=== PATIENT | male | born 1965 | race Caucasian/White ===

== ENCOUNTER 2025-02-20 14:05 | Emergency (ER) | payer BC, SELFPAY ==
[2025-02-20 14:05] VITALS: BP 144/78; PULSE 88; RESP 18; TEMP 36.6; O2SAT 95
--- NOTE | 2025-02-20 14:11 | ED.WOUNDLAC ---
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 No other injuries. Last tetanus shot 2016. Related Data Allergies Allergy/AdvReac Type Severity Reaction Status Date / Time hydromorphone (From Dilaudid) Allergy Unknown Unknown Verified 02/20/25 14:32 Review of Systems Review of Systems: All systems reviewed & are unremarkable except as noted in HPI and below Exam Narrative: General appearance: Well-developed, well-nourished Skin: Normal color , right lower leg showed 3 cm flap laceration, subcutaneous distally and medially Head: Normocephalic, nontraumatic Neck: Supple, nontender Chest and respiratory: Airway patent, no respiratory distress, no accessory muscle use Heart: Regular rate/rhythm Abdomen: Soft, nontender, no organomegaly, quiet bowel sounds Vascular: Normal peripheral pulses, normal capillary refill. Musculoskeletal: Normal range of motion, nontender back Neurologic: Alert and oriented ?3, [employer] TECH[employer]ICIAN is normal as tested, no gross motor deficit Procedures Laceration Laceration 1: Date: 02/20/25 Time: 14:34 Site: lower extremity Side (If applicable): right ( right lower leg medially) Size (cm): 3 Description: flap and clean Depth: simple, single layer Local Anesthetic: lidocaine 1% and with epi Amount of anesthesia used (mL): 4 Pre-repair: wound explored and irrigated ====== Skin Level ====== Skin layer closed with: nylon Size (cm): 4-0 Number of sutures: 4 Technique: simple, interrupted ====== Subcutaneous Layer ====== ====== Muscle Layer ====== ====== Tendon Layer ====== Critical Care Time Critical Care Time Critical Care Time: No Discharge Plan Discharge Clinical Impression: Laceration of leg Patient Disposition: Home Condition: Improved Instructions: Antibiotic Form Additional Instructions: Return if symptoms are worsening , call your family physician for appointment, take Tylenol as as needed for aches and pain, continue home medications. Keep leg elevated Topical Neosporin twice a day for 3 days Remove sutures in 8 days Patient Language: Cuban Prescriptions: New cephalexin 500 mg capsule 500 mg PO Q6H Qty: 28 0RF Follow-up/Referrals: UNKNOWN,DOCTOR [Primary Care Provider]
[2025-02-20] MEDS: TETANUS,DIPHTHERIA,AC PERTUSSIS ADULT 0.5 ML (ADACEL) IM (14:37)
[2025-02-20] MEDS: NEOMYCIN/POLYMYXIN/BACITRACIN OINTMENT PACKET 1 PACKET TOPICAL (14:39)
[2025-02-20 14:46] VITALS: BP 144/78; PULSE 88; RESP 81; TEMP 36.6; O2SAT 95
--- NOTE | 2025-02-20 14:56 | PC.NURSE ---
patient is okay to discharge, no reaction to vaccine post 15 minutes.
--- OUTSIDE RECORDS SUMMARY | 2025-02-20 14:58 | XMS_ITS | Patient Health Record ---
Author Organization [facility] Address [address] [place] [address] Care Team Providers Care Solar Sales Representative Name Role Phone Jose Juan Rocha Primary Care Provider Unavailabl e Sanya Sutton Unavailable [phone] Maurice Hector Unavailable [phone] Sanya Hurley Unavailable [phone] Tony Escobar Unavailable [phone] Columba Sykes Unavailable [phone] Allergies Allergen (clinical drug ingredient) Drug/Non Drug Allergy documented on EMR Reaction Allergy Type Onset Date Status hydromorphone Dilaudid nausea and vomiting Drug Allergy Active Results Component Value Reference Range Notes MRI Lower extremity any join t WO contrast (04459) Reviewed date:11/26/2024 10:27:07 AM Interpretation: Performing Lab: Notes/Report: XR Knee right complete 4 vie ws Reviewed date:05/12/2024 09:47:38 AM Interpretation: Performing Lab: Notes/Report: XR Knee right complete 4 vie ws Reviewed date:11/07/2024 10:38:23 AM Interpretation: Performing Lab: Notes/Report: Reason For Referral Reason MRI w/o contrast rig ht knee [facility] [address] [place]-assess for meniscus tear Diagnosis 1 Peripheral tear of m edial meniscus of right knee as current injury, initial encounter (S83.221A) Diagnosis 2 Primary osteoarthrit is of right knee (M17.11) Diagnosis 3 Right knee pain, uns pecified chronicity (M25.561) Referral Organization [facility] Referring Provider First Name Tony Referring Provider Last Name Luz Referring Provider Speciality Orthopedic Surgery Referred Organization [facility] Referred Address [address],[place],[address],[place] Procedure 1 MRI JNT OF LWR EXTRE W/O DYE (11405) General Notes Susie Mcbride 2024 08:59:04 PM >Initiated case on [employer] web portal for CPT 74389 case has been Approved, Auth no [id number], valid date 11/10/2024 - 12/09/2024., Susie Mcbride 11/10/2024 09:09:16 PM >For secondary insurance ([id number]) - Checked on [employer] web portal found that no auth required for diagnostic imaging. [facility] found that No Authorization Required for CPT 62372. Transaction Id- [id number]. NITA letter has been attached. Even called [employer] @[phone] spoke with Chilango Cohn rep stated no auth required for CPT 37809. call ref [id number].Lexi Angela 11/10/2024 02:10:47 PM >We had like 12 STAT MRI's today . We are about a week out for MRI. Pt. Pt is scheduled 11/19/24, Pt needs a new work order until he sees Dr. Hector on 11/27/24. PHad to R/s since MRI won't be completed by 11/17/24, Vashti Abreu 11/11/2024 04:13:10 PM >Pt does not need a new work note as it has no dates on it for the MRI or for his follow up with Tawny. That was done intentionally because nothing was confirmed at the time.Lexi Angela 11/12/2024 06:55:25 AM >Please call pt to discuss. Pt requested this Referral Priority Stat Reason Auth for right knee Gelsyn-3 Diagnosis 1 Primary osteoarthrit is of right knee (M17.11) Referral Organization [facility] Referring Provider First Name Maurice Referring Provider Last Name Tawny Referring Provider Speciality Orthopedic Surgery Referred Organization [facility] Referred Address [address],[place],[address],[place] Procedure 1 Gelsyn - 3 (GLSN3) General Notes Luly Rivera 08/2024 10:58:30 AM >Per Izzy at [facility] pharmacy dept, will be sending over the tom code to cover my meds., Som Riverada 12/02/2024 11:09:18 AM >Pending auth thru cover my meds, case#[id number]., Miguel [facility] 12/11/2024 03:04:58 PM >Per Izzy at [facility]. Synvisc-3 must be auth under the patient plan., Miguel Luly 12/11/2024 03:07:12 PM >Call [facility] [phone]., Miguel Luly 12/11/2024 03:52:34 PM >Per Jakub at [facility] eligibility, insurance is an active PPO, plan is thru [place], effective 07/02/2024, ded $1500-met, oop $4000-met $1973.66, no copay, coins 100%, no auth required for J7325 and 16295 but Pre-D is required for J7325, phone [phone], call ref#[id number]., Miguel [facility] 12/12/2024 01:44:05 PM >Per Katya E at [facility] pre-d dept, no auth or Pre-D is required for J7325 and 61654, case#[id number]., Miguel [facility] 12/12/2024 02:07:33 PM >Verbal Synvisc-3 script given to Eusebio pharmacist at [facility] now in process and takes 3-5 business days to complete., Miguel [facility] 12/19/2024 10:41:51 AM >Synvsic-3 pending [facility], case ref#[id number], swp with Henry Eddy Samantha 12/19/2024 12:16:24 PM >Leidy from [facility] called stating the the joint injection needs to be submitted under medical not under pharmacy. please call Crystal at [facility] at [phone]. please call patient at [phone]., Miguel Luly 12/25/2024 12:15:33 PM >Pending cover my meds, case#[id number]., Luly Rivera 12/29/2024 02:33:06 PM >Can patient switch to another injection like Euflexxa, Gelsyn-3. I no longer have access to the [employer] Portal., Ara Moran 12/29/2024 03:18:27 PM >switch to Gelsyn 3, thanks!, Luly Rivera 12/29/2024 03:44:56 PM >Pending BV360 for benefits verification and auth., Isai Leonard 01/06/2025 03:33:44 PM >Please call pt-he has information for you [phone], Merced Avila 01/07/2025 09:07:41 AM >pt calling; states ins co told him to submit to medical not pharm for gel injections, Luly Rivera 01/09/2025 02:19:56 PM >Gelsyn-3 injection 100.80 per injection due in full at POS, per Radha Silvestre Referral Priority Urgent Medications Medication SIG (Take, Route, Frequency, Duration) Notes Start Date End Date Status Fluticasone Propionate 50 MCG/ACT 1 spray in each nostril Nasally Twice a day Active Celecoxib 100 MG 1 capsule with food Orally twice a day; Duration: 30 days 12/01/2024 03/01/2025 Active Lisinopril 40 MG 1 tablet Orally Once a day Active hydroCHLOROthiazide 12.5 MG 1 tablet in the morning Orally Once a day Active Cetirizine HCl 10 MG 1 tablet Orally Onc e a day Active Vitamin D Active Voltaren Active Omeprazole 20 MG 1 capsule 1/2 to 1 hour before morning meal Orally Once a day Active Nebivolol HCl 10 MG 1 tablet Orally Once a day Active Coenzyme Q10 10 MG as directed Orally Active Pravastatin Sodium 40 MG 1 tablet Orally Once a day Active Problems Problem Type SNOMED Code ICD Code Onset Dates Problem Status W/U Status Risk Notes Problem Primary osteoarthritis of right knee (M17.11) Active confirmed Vital Signs Height-cm 177.8 cm 02/09/2025 Weight-kg 147.69 kg 11/27/2024 Height 70 in 02/09/2025 Weight 325.6 lbs 11/27/2024 BMI 46.71 kg/m2 11/27/2024 Encounters Encounter Location Date Provider Diagnosis [facility] [address] [place] [address] 05/12/2024 Columba Sykes Right knee pain, unspecified chronicity M25.561 and Primary osteoarthritis of right knee M17.11 [facility] [address] [place] [address] 06/04/2024 Columba Sykes Primary osteoarthrit is of right knee M17.11 [facility] [address] [place] [address] 09/12/2024 Columba Sykes Primary osteoarthrit is of right knee M17.[address] [address] 11/07/2024 Tony Escobar Right knee pain, unspecified chronicity M25.561 and Peripheral tear of medial meniscus of right knee as current injury, initial encounter S83.221A [facility] [address] [place] [address] 11/19/2024 Tony Escobar Peripheral tear of medial meniscus of right knee as current injury, initial encounter S83.221A and Right knee pain, unspecified chronicity M25.561 [facility] [address] [place] [address] 11/27/2024 Maurice Hector Primary osteoarthrit is of right knee M17.11 [facility] [address] [place] [address] 01/26/2025 Sanya Hurley Primary osteoarthrit is of right knee M17.11 [facility] [address] [place] [address] 02/02/2025 Sanya Hurley Primary osteoarthrit is of right knee M17.11 [facility] [address] [place] [address] 02/09/2025 Sanya Hurley Primary osteoarthrit is of right knee M17.11 [facility] [address] [place] [address] 09/22/2024 Tony Escobar [facility] [address] [place] [address] 10/29/2024 Tony Escobar [facility] [address] [place] [address] 11/03/[address] [facility] [address] [place] [address] 12/01/2024 Maurice Adrians [facility] [address] [place] [address] 12/01/2024 Sanya Xavi [facility] [address] [place] [address] 01/30/2025 Maurice Hector [facility] [address] [place] [address] 01/30/2025 Maurice Hector Assessments Encounter Date Diagnosis (ICD Code) Assessment Notes Treatment Notes Treatment Clinical Notes Section Notes 05/12/2024 Primary osteoarthritis of right knee (ICD-10 - M17.11) 05/12/2024 Right knee pain, unspecified chronicity (ICD-10 - M25.561) 06/04/2024 Primary osteoarthritis of right knee (ICD-10 - M17.11) 09/12/2024 Primary osteoarthritis of right knee (ICD-10 - M17.11) 11/07/2024 Right knee pain, unspecified chronicity (ICD-10 - M25.561) 11/07/2024 Peripheral tear of medial meniscus of right knee as current injury, initial encounter (ICD-10 - S83.221A) 11/19/2024 Right knee pain, unspecified chronicity (ICD-10 - M25.561) 11/19/2024 Peripheral tear of medial meniscus of right knee as current injury, initial encounter (ICD-10 - S83.221A) 11/27/2024 Primary osteoarthritis of right knee (ICD-10 - M17.11) 01/26/2025 Primary osteoarthritis of right knee (ICD-10 - M17.11) 02/02/2025 Primary osteoarthritis of right knee (ICD-10 - M17.11) 02/09/2025 Primary osteoarthritis of right knee (ICD-10 - M17.11) 05/12/2024 Other We discussed several conservative treatment options for the patient's right knee osteoarthritis including continuing chxi-jns-kqldgkc medication, prescription strength anti-inflammatories, bracing, topical analgesics, injections, activity and lifestyle modification. At this time since patient has failed conservative treatment in the form of kejd-hyn-agqrazm medications, we will send a prescription for Celebrex to the patient's pharmacy in an effort to decrease pain and inflammation. I discussed with patient that if symptoms persist or worsen we could consider a right knee cortisone injection in the future. Patient was encouraged to wear a compression knee sleeve as needed for pain, swelling, and proprioceptive feedback. We will see patient back on an as-needed basis or sooner if symptoms/issues arise. Patient is agreeable to plan and verbalized understanding. All questions were answered. Disclaimer: To increase efficiency your provider prepared this document using voice recognition technology. If a word or phrase is confusing, or does not make sense, this is likely due to a recognition error within the program which was not discovered during the provider's review. If you believe an error has occurred, please notify your provider's office at your earliest convenience, so we can correct any mistakes. 06/04/2024 Other Pre-Procedure Diagnosis: Right knee osteoarthritis Post-Procedure Diagnosis: Same Indications: Osteoarthritis, severe Procedure: The risks, benefits, limitations, and potential complications associated with injection therapy were discussed in great detail. All questions and concerns related to the injection were addressed appropriately. After verbal consent was obtained, the anterolateral portion of the right knee was prepped with an alcohol swab. Using sterile technique and a 21-gauge needle, the knee was injected with a mixture of 4 mL of 40 mg triamcinolone and 1 ml of 0.5% bupivacaine solution. A pressure bandage was applied to the injection site. The patient tolerated the procedure well and experienced no acute complications. Post-injection instructions were reviewed with the patient. We again discussed several conservative treatment options for the patient's right knee osteoarthritis including zsqo-lbn-igjmdmd medication, prescription strength anti-inflammatories, injections, bracing, activity and lifestyle modification. At this time patient like proceed with a right knee cortisone injection. Patient tolerated the injection today well. I did discuss with patient that he may receive repeat injection as often as every 3 months. Since patient did notice some relief while taking the Celebrex, we will send him a twice a day prescription. I did discuss in length today with the patient that if he continues to fail conservative treatment, we may have to discuss operative treatment options. However I did discuss with patient that in order to be a candidate for total knee replacement in the future patient he would need to work towards BMI optimization with a goal BMI of less than 40. Since I saw patient 05/12/2024 he has already reduced his BMI as he is making several lifestyle changes. I encouraged patient to continue with these lifestyle changes I do see his primary care provider as needed to further discuss BMI optimization. Patient verbalized understanding. We will see patient back on an as-needed basis or sooner if symptoms/issues arise. Patient is agreeable to plan and verbalized understanding. All questions were answered. Disclaimer: To increase efficiency your provider prepared this document using voice recognition technology. If a word or phrase is confusing, or does not make sense, this is likely due to a recognition error within the program which was not discovered during the provider's review. If you believe an error has occurred, please notify your provider's office at your earliest convenience, so we can correct any mistakes. 09/12/2024 Other Pre-Procedure Diagnosis: Right knee osteoarthritis Post-Procedure Diagnosis: Same Indications: Osteoarthritis, severe Procedure: The risks, benefits, limitations, and potential complications associated with injection therapy were discussed in great detail. All questions and concerns related to the injection were addressed appropriately. After verbal consent was obtained, the anterolateral portion of the right knee was prepped with an alcohol swab. Using sterile technique and a 21-gauge needle, the knee was injected with a mixture of 4 mL of 40 mg triamcinolone and 1 ml of 0.5% bupivacaine solution. A pressure bandage was applied to the injection site. The patient tolerated the procedure well and experienced no acute complications. Post-injection instructions were reviewed with the patient. Patient is currently taking his Celebrex twice daily and reports this does give him relief and will continue to take it. I discussed with patient he may receive repeat injection as often as every 3 months. Patient was encouraged to continue to work towards BMI optimization with a goal BMI of less than 40. We will see patient back on an as-needed basis or sooner if symptoms/issues arise. Patient is agreeable to plan and verbalized understanding. All questions were answered. Disclaimer: To increase efficiency your provider prepared this document using voice recognition technology. If a word or phrase is confusing, or does not make sense, this is likely due to a recognition error within the program which was not discovered during the provider's review. If you believe an error has occurred, please notify your provider's office at your earliest convenience, so we can correct any mistakes. 11/07/2024 Other - Ordered and reviewed right knee x-rays in our office to further evaluate the joint. - Encouraged continued use of over the counter medications, braces and exercises to manage pain and improve function. - Advised the patient to consider activity and lifestyle modifications to alleviate symptoms. - Scheduled a follow-up appointment next week with Dr. Hector to discuss test results and determine the next steps in treatment. Harshil presents today for evaluation of right knee pain. He states he had an episode of severe right knee discomfort along the inside of the right knee on Sunday of this week to the point where he could not put any weight on the leg at all. He has been using crutches since then but has not tried walking normally since that time. He does state that his symptoms have improved since Sunday but that he still has some discomfort along the inside of the knee. He did not have any falls, trauma, injuries, or noncontact events but states that he has had gradually worsening knee pain since August of this year. He has already tried steroid injections and has not had much long-term relief from this. We did repeat x-rays today which show moderate right knee arthritis. My impression is that he is having exacerbation of progressively worsening arthritis but he feels like something is torn and it is possible he has a degenerative meniscus tear based on physical exam and radiographic findings. I will order an MRI of the right knee. We discussed continued conservative care. He was interested in pursuing gel injections if this is a possibility after MRI is reviewed. I did mention to him that I was leaving [facility] and he would like to get established with another provider very soon so that he does not experience any lapse in treatment. He will schedule an appointment with Dr. Hector next week to discuss his symptoms and MRI results at that time. He is welcome to follow-up with me on an as-needed basis in the future. I did provide him a work note today stating no work until MRI results are reviewed as he is still unable to walk safely on the right lower extremity. He is agreeable to this and did have all questions answered. Disclaimer: To increase efficiency your provider prepared this document using voice recognition technology. If a word or phrase is confusing, or does not make sense, this is likely due to a recognition error within the program which was not discovered during the provider's review. If you believe an error has occurred, please notify your provider's office at your earliest convenience, so we can correct any mistakes. - Discussed the importance of compliance with the prescribed treatment plan. - Provided information about the potential surgical procedure, if applicable. - Informed the patient about possible outcomes and risks associated with the condition and its management. 11/27/2024 Other MRI of the right [place]20[place] [facility] 1. Horizontal tear of the medial meniscus is at least 1 cm in length.2. 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 The lateral meniscus demonstrates and undersurface tear at the body/posterior horn junction for length of approximately 5 mm. I interpreted 4 views of the right knee including standing AP, notch, lateral and merchant views. These were obtained 11/07/2024 and reviewed with the patient. My Impression: 1. No acute fracture, dislocation or other abnormality. 2. Moderate medial compartment OA, right worse than left. 3. Mild patellofemoral OA, bilateral. At this time, diagnosis and treatment options were discussed with the patient, including continued conservative management, bracing, physical therapy, injection therapy, up to surgical intervention failing nonoperative treatment options. We discussed surgical vs nonsurgical treatment and I explained to him the poor prognosis following arthroscopic surgery since his MRI shows significant chondromalacia along with medial and lateral meniscus tears. We elected to proceed with ordering authorization for gelsyn injection to the right knee and I emphasized on the importance of weight management. We will provide a note to continue off work until he completes the viscosupplementation series. He will be fitted on a medial OA reaction brace to assist with ambulation. This note is documented by Rolan Scott, acting as scribe for Dr. Maurice Hector MD 01/26/2025 Other We discussed th e diagnosis and treatment options. I discussed the role of injection therapy for the temporary treatment of arthritis symptoms, as well as risks, benefits, and limitations. All questions from the patient were answered and informed consent was obtained. The patient's right knee was injected with Gelsyn under a sterile technique. Post-injection protocol instructions were reviewed. 02/02/2025 Other We discussed th e diagnosis and treatment options. I discussed the role of injection therapy for the temporary treatment of arthritis symptoms, as well as risks, benefits, and limitations. All questions from the patient were answered and informed consent was obtained. The patient's right knee was aspirated under a sterile technique. Post-aspiration protocol instructions were reviewed. We discussed the diagnosis and treatment options. I discussed the role of injection therapy for the temporary treatment of arthritis symptoms, as well as risks, benefits, and limitations. All questions from the patient were answered and informed consent was obtained. The patient's right knee was injected with Gelsyn under a sterile technique. Post-injection protocol instructions were reviewed. 02/09/2025 Other We discussed th e diagnosis and treatment options. I discussed the role of injection therapy for the temporary treatment of arthritis symptoms, as well as risks, benefits, and limitations. All questions from the patient were answered and informed consent was obtained. The patient's right knee was injected with Gelsyn under a sterile technique. Post-injection protocol instructions were reviewed. Plan Of Treatment Next Appt Details Provider Name:Sanya Lee rts, 03/12/2025 08:00:00 AM, [address] [place], [address], Insurance Providers Payer Name Payer Address Payer Phone Subscriber Number Group Number Insured Name Patient Relationship to Insured Coverage Start Date Coverage End Date [facility] [address] [place] [address] [id number] Harshil Zaman Self - patient is the insured 5 [facility] PPO [address] [place], [place] [phone] [id number] Patricia Zaman Spouse - patient is the spouse of the insured 5 Medications Administered Medication Instructions Date of Administration Dosage Notes BUPivacaine HCl 06/04/2024 4 mL R Knee BUPivacaine HCl 09/12/2024 4 mL R Knee Lidocaine HCl 02/02/2025 5 mL Gelsyn-3 02/02/2025 2 mL Gelsyn-3 01/26/2025 16.8 mg Gelsyn-3 02/09/2025 16.8 mg Kenalog-40 06/04/2024 1 mL R Knee Kenalog-40 09/12/2024 1 mL R Knee Medical (General) History Medical History History ICD Code Gout High Cholesterol High Blood Pressure Cancer Sleep Apnea Kidney Stones Surgical History Surgery Date(Month/Year) Gall Bladder Hernia
--- OUTSIDE RECORDS SUMMARY | 2025-02-20 14:58 | XMS_ITS | Encounter Summary ---
Author Organization [facility] Address [address] [place] [address] Care Team Providers Care Buoy Tender Name Role Phone Jose Juan Elias MD Primary Care Provider Unavaila Laila Adkins MD Unavailable Unava ilable Encounter Details Date Type Department Care Team (Latest Contact Info) Description 10/19/2011 Historical Office Visit [facility] [place] [address] [place] [phone] Jose Juan Elias MD Unspecified essential hypertension; Other malaise and fatigue Social History Tobacco Use Types Packs/Day Years Used Date Smoking Tobacco: Never Assessed Sex and Gender Information Value Date Recorded Sex Assigned at Not on file 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 Gender Identity Male 10/20/2020 3:58 PM CDT Sexual Orientation Straight 10/20/2020 3: 58 PM CDT documented as of this encounter Last Filed Vital Signs Vital Sign Reading Time Taken Comments Blood Pressure 112/72 10/19/2011 9:08 AM CDT Pulse 66 10/19/2011 9:08 AM CDT Temperature 36.6 C (97.8 F) 10/19/2011 9:08 AM CDT Respiratory Rate 16 10/19/2011 9:08 AM CDT Oxygen Saturation - - Inhaled Oxygen Concentration - - Weight 125.3 kg (276 lb 4 oz) 10/19/2011 9:06 AM CDT Height 175.3 cm (5' 9) 10/19/2011 9:06 AM CDT Body Mass Index 40.79 10/19/2011 9:06 AM CDT documented in this encounter Progress Notes * Jose Juan Elias MD - 10/19/2011 9:06 AM CDT Nursing Chief Complaint/Reason For Encounter F/U ON TESTING Intake Note PT CAME IN TODAY TO FOLLOW UP ON BLOOD WORK AND OTHER TESTING HE HAD AT [facility]: Medication list given and reviewed with patient/family and voices understanding. Subjective HPI HERE FOR F/U ON LABS AND TESTING working on diet exercising more stress and pfts ok no further cp n/v d/c Allergies Reviewed: Oct 19 2011 NKA Past Med/Surg History Problems Advice/health instruction (10); First Visit: Aug 05 2007, Last Visit: Sep 29 2011 Elevated blood pressure w/o hypertension (1); First Visit: Aug 05 2007, Last Visit: Aug 05 2007 Hyperlipidemia (6); First Visit: Sep 30 2007, Last Visit: Sep 29 2011 Pain in limb (1); First Visit: Aug 28 2006, Last Visit: Aug 28 2006 Prostatic hypertrophy, benign (1); First Visit: Aug 05 2007, Last Visit: Aug 05 2007 Tenosynovitis, foot and/or ankle (1); First Visit: Aug 28 2006, Last Visit: Aug 28 2006 Med List last modified Oct 19 2011 Reviewed: Oct 19 2011 lisinopril-hydrochlorothiazide 20 mg-25 mg Tab, 1 tablet(s) by mouth daily, 30 tablet(s) taking Uloric 80 mg Tab, one tablet daily, 30 tablet(s) taking Preferred Pharmacy [place], [place] [[address]] Family History last modified Dec 16 2009 Reviewed: Oct 19 2011 Positive Family History for: Coronary artery disease Diabetes mellitus Hypertension Prostate cancer Additional comments: NOTHING NEW TO ADD TO HX Social History last modified Aug 04 2011 Reviewed: Oct 19 2011 Tobacco Never smoked; Comments Tobacco no use; Tobacco reviewed with patient 10/19/2011 Alcohol Use Non-drinker Caffeine Use Uses caffeine; Amount: heavy (equiv to 4-9 8oz coffee/day) Diet/Nutrition Poor diet Drug Misuse No reported history Exercise Sedentary Home Safety Risk Seat belt worn consistently; Smoke detectors in home Personal: Ethnicity: Not ; Race: WHITE; Primary language: ISRAELI; Marital status: Review of systems Constitutional: No fever, No chills, No abnormal weight gain, No abnormal weight loss, No URI symptoms Eyes/ENT/Mouth: No Visual disturbances, No eye itching, No eye pain, No eye discharge, No epistaxis, No throat pain, No hoarseness, No ear pain, No tinnitus, No hearing loss Cardiorespiratory: No chest pain, No palpitations, No claudication, No orthopnea, No paroxysmal nocturnal dyspnea, No lower extremity edema, No pleuritic chest pain, No dyspnea, No cough, No wheezing, No Purulent sputum GI/: No nausea, No vomiting, No abdominal pain, No diarrhea, No constipation, No blood in stool, No dysuria, No Urinary urgency, No Increased frequency of urination, No nocturia, No Enuresis Musculoskeletal/Integumentary: No neck pain, No back pain, No Arthralgia, No Myalgia, No rash, No pruritus, No change noted in any moles, No Cyanosis of skin, No Skin lesions Neuropsychiatric: No headaches, No lightheadedness, No vertigo, No syncope, No numbness, No muscle weakness, Not feeling anxious, Not feeling depressed, No difficulty sleeping, Not at risk for violence, No History of psychiatric illness Endocrine/Lymphatic/Allergy: No fatigue, No increased thirst, No polyuria, No lymph node swelling, No lymph node tenderness, Does not bruise easily, No Bleeding, No Hayfever, No urticaria, No Anaphylaxis Objective Vital Signs Temp: 97.8??F (Oral) [36.6??C] HR: 66 bpm RR: 16 Blood Pressure: 112/72 mmHg (L arm sitting Adult-std cuff) Date/Time: Oct 19 2011 09:08 Height: 69 in [175.26 cm] Weight:276 lb 4 oz lbs [125.305 kg ] BMI: 40.8 BSA: 2.37 Date/Time: Oct 19 2011 09:06 Physical Exam Constitutional: alert, appropriate, no distress, non-toxic Neck: supple, no mass, no thyromegaly, trachea midline, no JVD, no bruit, full ROM Eyes/ENT: lids/conj clr, PERRL, EOMIB, discs/fundi symm, TM's/canals clr, hearing OK, MM moist/clr Cardio and Respiratory: RRR, no m/r/g/, PMI nml, pulses symm, no edema, chest symm, clear to auscultation, no R/R/W GI/: soft, NT/ND, positive BS X 4, no mass Musculoskeletal/Skin/Lymphatics: back symm/NT, extremities symm, FROM, well hydrated, nml perfusion, no lesions, cervical, supraclavicular, axillary, inguinal nodes sym/nml Neurologic and Psychiatric: CN II-XII intact, DTR 2/4 symm, MS 5/5 symm, sensory exam symm, gait/coordination intact, memory intact, A&O X 3, mood/affect wnl, judgement/insight appropriate Assessment Assessments Advice/health instruction (ICD-9 billing code: V65.40) Gout (ICD-9 billing code: 274.9) Hyperlipidemia, mixed (ICD-9 billing code: 272.2) Hypertension, essential (ICD-9 billing code: 401.9) Malaise and fatigue (not chronic fatigue syndrome) (ICD-9 billing code: 780.79) Billing Detail Medication Management: New/current prescription meds Review and/or order of lab tests; Review and/or order of test in the medicine section of CPT Plan Lab Orders Free and Total Testosterone (Ordered - Malaise and fatigue (not chronic fatigue syndrome)) Lyme AB, Total (Ordered - Malaise and fatigue (not chronic fatigue syndrome)) Prescription Orders Rx Cart - Oct 19 2011 09:35 pravastatin 40 mg Tab, 1 tablet(s) by mouth at bedtime, 30 tablet(s), 3 refills (Hyperlipidemia, mixed) Cart Status: Submitted Route: Electronic Rx Cart [id number] phone: [phone]: Message for Pharmacy: - Procedure Orders zPt Ed - Calcium Intake (Performed - Advice/health instruction) zPt Ed - Immunizations (Performed - Advice/health instruction): Other orders LABS BETTER BUT HIGH RISK FOR CAD ADD PRAVACHOL WORK ON EXERCISE CHECK TESTOSTERONE AND LYMES LIVER LIPIDS IN 3 MO Contributors to this Visit Note Documenting Clinician: Purvi LOPEZ - Staff Type: NONE Time: Oct 19 2011 09:06 Action: Eamon LOPEZ - Staff Type: NONE Time: Oct 19 2011 09:10 Action: Smita CARR - Staff Type: NONE Time: Oct 19 2011 09:42 Action: Smita ELIAS - Staff Type: Physician Time: Oct 19 2011 13:09 Action: Smita ELIAS - Staff Type: Physician Time: Oct 19 2011 13:09 Action: Sign documented in this encounter Plan of Treatment Not on file documented as of this encounter Visit Diagnoses Diagnosis Unspecified essential hypertension Other malaise and fatigue documented in this encounter Care Teams Buoy Tender Relationship Specialty Start Date End Date Jose Juan Elias MD PCP - General Family Medicine 04/06/14 05/05/24 Laila Alfonso MD Consulting Physician Dermatology 12/05/18 documented as of this encounter
--- OUTSIDE RECORDS SUMMARY | 2025-02-20 14:58 | XMS_ITS | Encounter Summary ---
Author Organization [employer] [facility] Address [address] [place] [address] Care Team Providers Care Technical Support Coordinator Name Role Phone Jose Juan Elias MD Primary Care Provider Unavaila Laila Adkins MD Unavailable Unava ilable Encounter Details Date Type Department Care Team (Latest Contact Info) Description 02/19/2012 Historical Office Visit [facility] [place] [address] [place] [phone] Jose Juan Elias MD Unspecified essential hypertension Social History Tobacco Use Types Packs/Day Years Used Date Smoking Tobacco: Never Assessed Sex and Gender Information Value Date Recorded Sex Assigned at Not on file 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 Gender Identity Male 10/20/2020 3:58 PM CDT Sexual Orientation Straight 10/20/2020 3: 58 PM CDT documented as of this encounter Last Filed Vital Signs Vital Sign Reading Time Taken Comments Blood Pressure 110/70 02/19/2012 9:16 AM CDT Pulse 68 02/19/2012 9:16 AM CDT Temperature 36.2 C (97.2 F) 02/19/2012 9:16 AM CDT Respiratory Rate 16 02/19/2012 9:16 AM CDT Oxygen Saturation - - Inhaled Oxygen Concentration - - Weight 123.8 kg (273 lb) 02/19/2012 9:16 AM CDT Height 176.5 cm (5' 9.5) 02/19/2012 9:16 AM CDT Body Mass Index 39.74 02/19/2012 9:16 AM CDT documented in this encounter Progress Notes * Jose Juan Elias MD - 02/19/2012 9:16 AM CDT Nursing Chief Complaint/Reason For Encounter MED REVIEW / LAB WORK Intake Note PT. HERE TODAY TO REVIEW MEDS AND STATES HE IS DUE FOR LAB WORK. HE WOULD LIKE A SCRIPT FOR CPAP SUPPLIES.: Provided tobacco use cessation counseling, Medication list given and reviewed with patient/family and voices understanding. Subjective HPI HERE FOR CHECK UP AND REFILLS NO CP SOBN/V D/C NOT SLEEPING WELL WAKING UP IN MIDDLE NIGHT AND CANTGO BACK TO SLEEP HASNT TRIED ANYTHING OTC YET STILL HAS BEEN TAKING HCTZ AND ULORIC, FEET HURT ALL TIME Allergies Reviewed: Feb 19 2012 NKA Past Med/Surg History Problems Advice/health instruction (12); First Visit: Aug 05 2007, Last Visit: Oct 24 2011 Elevated blood pressure w/o hypertension (1); First Visit: Aug 05 2007, Last Visit: Aug 05 2007 Hernias - Hx of hernia repair Hyperlipidemia (6); First Visit: Sep 30 2007, Last Visit: Sep 29 2011 Pain in limb (1); First Visit: Aug 28 2006, Last Visit: Aug 28 2006 Prostatic hypertrophy, benign (1); First Visit: Aug 05 2007, Last Visit: Aug 05 2007 Tenosynovitis, foot and/or ankle (1); First Visit: Aug 28 2006, Last Visit: Aug 28 2006 Med List last modified Feb 19 2012 Reviewed: Feb 19 2012 pravastatin 40 mg Tab, 1 tablet(s) by mouth at bedtime, 30 tablet(s) taking AndroGel 20.25 mg/1.25 gram (1.62 %) Transdermal Gel Pump, *COMPOUND*, 1 month(s) taking discontinued discontinued (Dosage change) discontinued Uloric 80 mg Tab, one tablet daily, 30 tablet(s) taking Preferred Pharmacy [place], [place] [[place], [address] [place] [address]] Family History last modified Dec 16 2009 Reviewed: Feb 19 2012 Positive Family History for: Coronary artery disease Diabetes mellitus Hypertension Prostate cancer Additional comments: NOTHING NEW TO ADD TO HX Social History last modified Aug 04 2011 Reviewed: Feb 19 2012 Tobacco Never smoked; Comments Tobacco no use; Tobacco reviewed with patient 02/19/2012 Alcohol Use Non-drinker Caffeine Use Uses caffeine; Amount: heavy (equiv to 4-9 8oz coffee/day) Diet/Nutrition Poor diet Drug Misuse No reported history Exercise Sedentary Home Safety Risk Seat belt worn consistently; Smoke detectors in home Personal: Ethnicity: Not ; Race: WHITE; Primary language: KYRGYZ; Marital status: Review of systems Constitutional: No [...] Musculoskeletal/Integumentary: No neck pain, No back pain, Arthralgia, Myalgia, No rash, No pruritus, No change [...] urticaria, No Anaphylaxis Objective Vital Signs Temp: *97.2 ??F (Oral) [36.3??C] HR: 68 bpm RR: 16 Blood Pressure: 110/70 mmHg (L arm sitting Adult-std cuff) Height: 69.5 in [176.53 cm] Weight:273 lbs [123.831 kg ] BMI: 39.7 BSA: 2.37 Date/Time: Feb 19 2012 09:16 Physical Exam Constitutional: alert, appropriate, no distress, [...] lesions, cervical, supraclavicular, axillary, inguinal nodes sym/nml CHRONIC GOUT Neurologic and Psychiatric: CN II-XII intact, DTR 2/4 symm, MS 5/5 symm, sensory exam symm, gait/coordination intact, memory intact, A&O X 3, mood/affect wnl, judgement/insight appropriate Assessment Assessments Advice/health instruction (ICD-9 billing code: V65.40) Gout (ICD-9 billing code: 274.9) Hypertension, essential (ICD-9 billing code: 401.9) Pain, foot (ICD-9 billing code: 729.5) Billing Detail Medication Management: New/current prescription meds Review and/or order of lab tests; Review and/or order of test in the medicine section of CPT Plan Lab Orders CBC with Differential (Manifested - Hypertension, essential) Comprehensive Metabolic Panel (CMP) (Manifested - Gout) Free and Total Testosterone (Manifested - Gout, Hypertension, essential) Lipid Panel (Manifested - Gout, Hypertension, essential) Uric Acid, Serum (Manifested - Gout) Prescription Orders Rx Cart - Feb 19 2012 09:46 lisinopril 40 mg Tab, 1 tablet(s) by mouth daily, 30 tablet(s), 5 refills Cart Status: Submitted Route: Electronic Rx Cart [id number] phone: [phone]: Message for Pharmacy: - Procedure Orders zPt Ed - Skin Cancer (Performed - Advice/health instruction) zPt Ed - Traffic Safety (Performed - Advice/health instruction): Other orders DC HCTZ BUMP LISINOPRIL TO 40 MG BP CHECK IN 4-6 WKS CALL IF ISSUES LABS TODAY MIGHT BE ABLE TO DROP ULORIC TO 40 IN FUTURE Contributors to this Visit Note Documenting Clinician: Purvi ROMERO - Staff Type: ASST Time: Feb 19 2012 09:16 Action: Eamon ROMERO - Staff Type: ASST Time: Feb 19 2012 09:22 Action: Smita ELIAS - Staff Type: MD Time: Feb 19 2012 09:47 Action: Smita TEJADA - Staff Type: Registered Nurse Time: Feb 19 2012 09:53 Action: Smiat ELIAS - Staff Type: MD Time: Feb 19 2012 13:08 Action: Sign documented in this encounter Plan of Treatment Not on file documented as of this encounter Visit Diagnoses Diagnosis Unspecified essential hypertension documented in this encounter Care Teams Technical Support Coordinator Relationship Specialty Start Date End Date Jose Juan Elias MD PCP - General Family Medicine 04/06/14 05/05/24 Laila Alfonso MD Consulting Physician Dermatology 12/05/18 documented as of this encounter
--- OUTSIDE RECORDS SUMMARY | 2025-02-20 14:58 | XMS_ITS | Encounter Summary ---
Author Organization [employer] [facility] Address [address] [place] [address] Care Team Providers Care Support Associate Name Role Phone Jose Juan Rocha MD Primary Care Provider Unavaila ble Laila Alfonso MD Unavailable Unava ilable Encounter Details Date Type Department Care Team (Latest Contact Info) Description 08/16/2009 Historical Office Visit [facility] [place] [address] [place] [phone] Jose Juan Rocha MD Unspecified essential hypertension; Personal history of urinary calculi Social History Tobacco Use Types Packs/Day Years Used Date Smoking Tobacco: Never Assessed Sex and Gender Information Value Date Recorded Sex Assigned at Not on file 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 Gender Identity Male 10/20/2020 3:58 PM CDT Sexual Orientation Straight 10/20/2020 3: 58 PM CDT documented as of this encounter Last Filed Vital Signs Vital Sign Reading Time Taken Comments Blood Pressure 110/64 08/16/2009 4:04 PM SAND AND GRAVEL PLANT OPERATOR Pulse 80 08/16/2009 4:04 PM SAND AND GRAVEL PLANT OPERATOR Temperature - - Respiratory Rate 20 08/16/2009 4:04 PM SAND AND GRAVEL PLANT OPERATOR Oxygen Saturation - - Inhaled Oxygen Concentration - - Weight 117 kg (258 lb) 08/16/2009 4:04 PM SAND AND GRAVEL PLANT OPERATOR Height - - Body Mass Index 38.1 02/19/2009 10:23 AM CDT documented in this encounter Plan of Treatment Not on file documented as of this encounter Visit Diagnoses Diagnosis Unspecified essential hypertension Personal history of urinary calculi documented in this encounter Care Teams Support Associate Relationship Specialty Start Date End Date Jose Juan Rocha MD PCP - General Family Medicine 04/06/14 05/05/24 Laila Alfonso MD Consulting Physician Dermatology 12/05/18 documented as of this encounter
--- OUTSIDE RECORDS SUMMARY | 2025-02-20 14:58 | XMS_ITS | Encounter Summary ---
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 Gender Identity Male 10/20/2020 3:58 PM CDT Sexual Orientation Straight 10/20/2020 3: 58 PM CDT documented as of this encounter Last Filed Vital Signs Vital Sign Reading Time Taken Comments Blood Pressure 170/100 02/19/2009 10:23 AM CDT Pulse 78 02/19/2009 10:23 AM CDT Temperature - - Respiratory Rate - - Oxygen Saturation - - Inhaled Oxygen Concentration - - Weight 117 kg (258 lb) 02/19/2009 10:23 AM CDT Height 175.3 cm (5' 9) 02/19/2009 10:23 AM CDT Body Mass Index 38.1 02/19/2009 10:23 AM CDT documented in this encounter Plan of Treatment Not on file documented as of this encounter Visit Diagnoses Not on filedocumented in this encounter Care Teams Crown Ironer Relationship Specialty Start Date End Date Jose Juan Rocha MD PCP - General Family Medicine 04/06/14 05/05/24 Laila Alfonso MD Consulting Physician Dermatology 12/05/18 documented as of this encounter
--- OUTSIDE RECORDS SUMMARY | 2025-02-20 14:58 | XMS_ITS | Patient Health Record ---
Author Organization [facility] Address [address] [place], [place] [address] Care Team Providers Care Account Representative Name Role Phone Jose Juan Rocha MD Primary Care Provider KEITH Medley Unavailable [phone] Allergies Allergen (clinical drug ingredient) Drug/Non Drug Allergy documented on EMR Reaction Allergy Type Onset Date Status hydromorphone hydromorphone stomach upset Drug Allergy Active Reason For Referral No Information Medications Medication SIG (Take, Route, Frequency, Duration) Notes Start Date End Date Status predniSONE 20 mg 2 tabs orally once a day for 5 days 04/29/2023 Active cholestyramine 4 g/9 g as directed orally 4 times a day for 30 day(s) 03/08/2022 Not-Taking Metoprolol Succinate ER 50 mg 1 tab(s) orally 2 times a day Not-Taking amoxicillin 875 mg 1 tab(s) orally every 12 hours for 10 day(s) 04/29/2023 Active ZyrTEC 10 mg 1 tab(s) orally once a day Active ondansetron 4 mg 1 tab(s) orally every 8 hours as needed for nausea prn 11/05/2021 Not-Taking Claritin 10 mg 1 tab(s) orally once a day Not-Taking Vitamin D3 5000 mg a day Active fluticasone nasal 50 mcg/inh 1 spray(s) in each nostril once a day for 30 day(s) 11/10/2022 Active nebivolol 10 mg 1 tab(s) orally once a day Active amoxicillin 875 mg 1 tab(s) orally every 12 hours for 10 day(s) 11/10/2022 Not-Taking lisinopril 40 mg 1 tab(s) orally once a day Active Uloric 80 mg 1 tab(s) orally once a day for 30 day(s) Active pravastatin 40 mg 1 tab(s) orally once a day for 30 day(s) Active omeprazole 20 mg 1 tab(s) orally 2 times a day Active Co Q-10 100 mg 1 cap(s) orally once a day Active Tylenol PM 1000 mg-50 mg/30 mL 30 mL orally once a day (at bedtime) Not-Taking hydroCHLOROthiazide 12.5 mg 1 cap(s) orally once a day Active Immunizations Vaccine Route Administration Date Status Comme nts Boostrix (Tdap) Unknown 10/31/2016 Administered Social History Tobacco Use: Social History Observation Description Date Details (start date - stop date) Never Smoker NA - NA Tobacco Use: Question Answer Notes Are you a: nonsmoker Alcohol Screening: Question Answer Notes Did you have a drink contain ing alcohol in the past year? Yes How often did you have a dri nk containing alcohol in the past year? Monthly or less (1 point) How many drinks did you have on a typical day when you were drinking in the past year? 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) Active confirmed Problem 82586004 Primary hypertension (I10) Active confirmed Problem 257867278 Chronic GERD (K21.9) Active confirmed Problem 744420383 Seasonal allergi c rhinitis, unspecified trigger (J30.2) Active confirmed Plan Of Treatment No Information Medications Administered Medication Instructions Date of Administration Dosage Notes ondansetron 11/05/2021 4 mg Lot# [id number] Medical (General) History Medical History History ICD Code Covid 19 vaccine:Pfizer 09/15/20, , 05/31/21 TDap: 10/31/16, 08/02/20 hypertension hyperlipidemia Surgical History Surgery Date(Month/Year) Double Hernia repair when a child Laparoscopic Cholectomy by Dr Nora Henao at . 01/23/2022 EGD w/biopsy and screening c olonoscopy w/polypectomy [address] Lizzeth Piper at 02/20/2022 Hospitalization History Reason Date(Month/Year) Kidney stones
--- OUTSIDE RECORDS SUMMARY | 2025-02-20 14:58 | XMS_ITS | Encounter Summary ---
Author Organization [employer] Address [address] [place] [address] Care Team Providers Care Mill Attendant Name Role Phone Jose Juan Rocha MD Primary Care Provider Unavaila Laila Adkins MD Unavailable Unava ilable Encounter Details Date Type Department Care Team (Latest Contact Info) Description 06/16/2010 Historical Office Visit [facility] Medicine [place] [address] [place] [phone] Jose Juan Rocha MD Unspecified essential hypertension; Obstructive sleep apnea (adult) (pediatric) Social History Tobacco Use Types Packs/Day Years Used Date Smoking Tobacco: Never Assessed Sex and Gender Information Value Date Recorded Sex Assigned at Not on file 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 Gender Identity Male 10/20/2020 3:58 PM CDT Sexual Orientation Straight 10/20/2020 3: 58 PM CDT documented as of this encounter Last Filed Vital Signs Vital Sign Reading Time Taken Comments Blood Pressure 122/90 06/16/2010 11:30 AM ELECTROCARDIOGRAM TECHNICIAN Pulse 70 06/16/2010 11:30 AM ELECTROCARDIOGRAM TECHNICIAN Temperature - - Respiratory Rate 18 06/16/2010 11:30 AM ELECTROCARDIOGRAM TECHNICIAN Oxygen Saturation - - Inhaled Oxygen Concentration - - Weight 122.6 kg (270 lb 6 oz) 06/16/2010 11:30 A M ELECTROCARDIOGRAM TECHNICIAN Height 175.3 cm (5' 9) 06/16/2010 11:30 AM ELECTROCARDIOGRAM TECHNICIAN Body Mass Index 39.93 06/16/2010 11:30 AM ELECTROCARDIOGRAM TECHNICIAN documented in this encounter Plan of Treatment Not on file documented as of this encounter Visit Diagnoses Diagnosis Unspecified essential hypertension Obstructive sleep apnea (adult) (pediatric) documented in this encounter Care Teams Mill Attendant Relationship Specialty Start Date End Date Jose Juan Rocha MD PCP - General Family Medicine 04/06/14 05/05/24 Laila Alfonso MD Consulting Physician Dermatology 12/05/18 documented as of this encounter
--- OUTSIDE RECORDS SUMMARY | 2025-02-20 14:58 | XMS_ITS | Encounter Summary ---
Author Organization [facility] Address [address] [place] [address] Care Team Providers Care Roller Structural Mill Name Role Phone Jose Juan Rocha MD Primary Care Provider Unavaila Laila Adkins MD Unavailable Unava ilable Encounter Details Date Type Department Care Team (Latest Contact Info) Description 12/13/2011 Historical Office Visit [facility] [address] [place] [id number] Jose Juan Rocha MD Gout, unspecified Social History Tobacco Use Types Packs/Day Years Used Date Smoking Tobacco: Never Assessed Sex and Gender Information Value Date Recorded Sex Assigned at Not on file 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 Gender Identity Male 10/20/2020 3:58 PM CDT Sexual Orientation Straight 10/20/2020 3: 58 PM CDT documented as of this encounter Last Filed Vital Signs Vital Sign Reading Time Taken Comments Blood Pressure 118/68 12/13/2011 4:02 PM CDT Pulse 72 12/13/2011 4:02 PM CDT Temperature 36.6 C (97.8 F) 12/13/2011 4:02 PM CDT Respiratory Rate 12 12/13/2011 4:02 PM CDT Oxygen Saturation - - Inhaled Oxygen Concentration - - Weight 125.2 kg (276 lb 2 oz) 12/13/2011 4:02 PM CDT Height 175.3 cm (5' 9) 12/13/2011 4:02 PM CDT Body Mass Index 40.78 12/13/2011 4:02 PM CDT documented in this encounter Progress Notes * Jose Juan Rocha MD - 12/13/2011 4:02 PM CDT Nursing Chief Complaint/Reason For Encounter GOUT FLARE UP IN BOTH FEET. Subjective HPI HERE WITH GOUT ISSUES IN BOTH FEET DOING OK UNTIL RECENTLY TAKES HIGH DOSE ULORIC AND NEVER MISSES LAST URIC ACID LOW AT 4.7 Allergies Reviewed: Dec 13 2011 NKA Past Med/Surg History Problems Advice/health [...] Aug 28 2006 Med List last modified Dec 13 2011 Reviewed: Dec 13 2011 diclofenac sodium 75 mg Tab, Delayed Release, 1 tablet two times daily as needed with food for pain, 60 tablet,delayed release(ec)(s) taking lisinopril-hydrochlorothiazide 20 mg-25 mg Tab, 1 tablet(s) by mouth daily, 30 tablet(s) taking pravastatin 40 mg Tab, 1 tablet(s) by mouth at bedtime, 30 tablet(s) taking AndroGel 20.25 mg/1.25 gram (1.62 %) Transdermal Gel Pump, *COMPOUND*, 1 month(s) taking Uloric 80 mg Tab, one tablet daily, 30 tablet(s) taking discontinued (DIDN'T LIKE SIDE EFFECTS) Preferred Pharmacy [place], [place] [[facility], [address] [place] [address]] Family History last modified Dec 16 2009 Reviewed: Dec 13 2011 Positive Family History for: Coronary artery disease Diabetes mellitus Hypertension Prostate cancer Additional comments: NOTHING NEW TO ADD TO HX Social History last modified Aug 04 2011 Reviewed: Dec 13 2011 Tobacco Never smoked; Comments Tobacco no use; Tobacco reviewed with patient 10/24/2011 Alcohol Use Non-drinker Caffeine Use Uses caffeine; Amount: heavy (equiv to 4-9 8oz coffee/day) Diet/Nutrition Poor diet Drug Misuse No reported history Exercise Sedentary Home Safety Risk Seat belt worn consistently; Smoke detectors in home Personal: Ethnicity: Not ; Race: WHITE; Primary language: SUDANESE; Marital status: Review of systems Constitutional: No [...] No urticaria, No Anaphylaxis Objective Vital Signs Pain Scale: 4/10 (Numeric) Location: RIGHT FOOT Frequency: Constant Duration: THREE DAYS Relieving Factors: NONE Significant to Visit: Yes Date/Time: Dec 13 2011 16:05 Temp: 97.8??F (Oral) [36.6??C] HR: 72 bpm RR: *12 Blood Pressure: 118/68 mmHg (L arm sitting Adult-std cuff) Height: 69 in [175.26 cm] Weight:276 lb 2 oz lbs [125.248 kg ] BMI: 40.8 BSA: 2.369 Pain Scale: 7/10 (Numeric) Location: LEFT FOOT Frequency: Constant Duration: THREE DAYS Relieving Factors: NONE Significant to Visit: Yes Date/Time: Dec 13 2011 16:02 Physical Exam Constitutional: alert, appropriate, no distress, [...] lesions, cervical, supraclavicular, axillary, inguinal nodes sym/nml TENDER SWOLLEN R GREAT TOE AND L MIDFOOT Neurologic and Psychiatric: CN II-XII intact, DTR 2/4 symm, MS 5/5 symm, sensory exam symm, gait/coordination intact, memory intact, A&O X 3, mood/affect wnl, judgement/insight appropriate Assessment Assessments Gout (ICD-9 billing code: 274.9) Billing Detail Medication Management: New/current prescription meds Review and/or order of lab tests Plan Lab Orders Standing Uric Acid, Serum in 1 month Prescription Orders Rx Cart - Dec 13 2011 16:20 prednisone 10 mg Tab, 2 tabs bid x 2 days, 1 tab bid x 2 days, then 1 tab daily for 3 days, 7 day(s), No refills Cart Status: Submitted Route: Electronic Rx Cart Order Notes: [id number] phone: [phone]: [phone] Copied Rx Cart - Dec 13 2011 16:25 Copied by: PANCHO BORRERO Reason: ROSANA failure prednisone 10 mg Tab, 2 tabs bid x 2 days, 1 tab bid x 2 days, then 1 tab daily for 3 days, 7 day(s), No refills Cart Status: Regenerated Route: Fax Rx Cart Order Notes: [id number] phone: [phone]: [phone] Message for Pharmacy: -: Other orders PRED TAPER AND NSAID REFILL GOUT DIET AGAIN, STAYS ON OXALATE DIET TOO CALL IF ISSUES CHECK URIC ACID IN DECEMBER Contributors to this Visit Note Documenting Clinician: Purvi YOUNG - Type: Bush Hog Operator Time: Dec 13 2011 16:02 Action: Eamon YOUNG - Staff Type: Bush Hog Operator Time: Dec 13 2011 16:05 Action: Smita ROCHA - Staff Type: MD Time: Dec 13 2011 16:22 Action: Smita BORRERO - Staff Type: Registered Nurse Time: Dec 13 2011 16:25 Action: Smita ROCHA - Staff Type: MD Time: Dec 14 2011 08:58 Action: Sign documented in this encounter Plan of Treatment Not on file documented as of this encounter Visit Diagnoses Diagnosis Gout, unspecified documented in this encounter Care Teams Roller Structural Mill Relationship Specialty Start Date End Date Jose Juan Rocha MD PCP - General Family Medicine 04/06/14 05/05/24 Laila Alfonso MD Consulting Physician Dermatology 12/05/18 documented as of this encounter
--- OUTSIDE RECORDS SUMMARY | 2025-02-20 14:58 | XMS_ITS | Clinical Summary ---
Author Organization [facility] Address [address] [place] [address] Phone Care Team Providers Care Casting Machine Set Up Operator Name Role Phone Aj MAYBERRY MD, Jose Juan Melendez Primary Care Provider [phone] Allergies Active Allergy Reactions Criticality Noted Date Comments Hydromorphone Hcl Nausea Low 02/26/2014 Medications lisinopril 40 MG PO TABS Take 40 mg by mouth daily. Active pravastatin (PRAVACHOL) 40 MG Tablet Take 40 mg by mouth daily. Active febuxostat (ULORIC) 80 MG Tablet Take 80 mg by mouth daily. Active Diphenhydramine -APAP, sleep, (TYLENOL PM EXTRA STRENGTH PO) Take 2 Tabs by mouth nightly as needed. Active loratadine (CLARITIN) 10 MG Tablet Take 10 mg by mouth daily. Active omeprazole (PRILOSEC) 20 MG CAPSULE DELAYED RELEASE Take 20 mg by mouth 2 times daily. 08/13/2018 Active meclizine (ANTIVERT) 25 MG Tablet Take 25 mg by mouth. 01/05/2020 Active hydroCHLOROthia zide (MICROZIDE) 12.5 MG Capsule Take 1 Capsule by mouth daily. 12/18/2020 Active Nebivolol HCl 10 MG Tablet Take 10 mg by mouth daily. 07/17/2022 Active Coenzyme Q10 100 MG Capsule Take 1 Capsule by mouth daily. Active Cholecalciferol (VITAMIN D-3 PO) Take 5,000 Units by mouth daily. Active Active Problems Problem Noted Date Diagnosed Date Hepatic steatosis 10/19/2022 Arthritis 10/19/2022 PAD (peripheral artery disease) 10/18/2022 GERD (gastroesophageal reflux disease) 3 HTN (hypertension) 04/20/2018 HLD (hyperlipidemia) 04/20/2018 hx of gout 04/20/2018 SERAFIN (acute kidney injury) 04/20/2018 Cholelithiasis 04/20/2018 Kidney stone 02/18/2014 Overview (07/09/2018): 07/09/2018: right ureteral stent placement 07/03/18 Jose Luis URS and stone extraction, stents with strings out Sunday05/08/18 Right ESWL - proximal ureter 10 mm 8-28-14 R ESWL Obstructive sleep apnea 04/08/2009 Overview (10/16/2011): Improved 05/12/2009 - Improved with a CPAP of 8. Pt has good usage of 6-8 hrs a night every night. Does have some awakening and insomnia at 3 to 4 in the morning. Discussed sleep hygiene and techniques with the pt. Pt will call office if he sees no improvement. 08/16/2009 - Pt is doing well on 8 cm of water pressure with CPAP with usage 7 out of 7 nights. Still has some mild insomnia at 3 in the morning and we discussed several techniques of sleep hygiene, decrease caffeine and reprioritizing some daytime issues. 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 Gender Identity Not on file Sexual Orientation Not on file Last Filed Vital Signs Vital Sign Reading Time Taken Comments Blood Pressure 126/68 10/19/2022 10:01 AM CDT Pulse 61 10/19/2022 10:01 AM CDT Temperature 37.1 C (98.7 F) 04/29/2020 12:51 PM CDT Respiratory Rate 16 04/29/2020 12:51 PM CDT Oxygen Saturation 98% 10/19/2022 10:01 AM CDT Inhaled Oxygen Concentration - - Weight 146.5 kg (323 lb) 10/19/2022 10:01 AM CDT Height 177.8 cm (5' 10) 10/19/2022 10:01 AM CDT Body Mass Index 46.35 10/19/2022 10:01 AM CDT Plan of Treatment Health Maintenance Due Date Last Done Comments Hepatitis C Virus (HCV) Screening 1967 Hepatitis B Immunization (1 of 3 - 19+ 3-dose series) 09/30/1986 Cologuard 09/30/2012 Colonoscopy 09/30/2012 Colorectal Cancer Screening 09/30/2012 Immunochemical Fecal Occult Blood 09/30/2012 Pneumococcal Immunization (50+ years) (1 of 1 - PCV) 09/30/2017 SARS-COV-2 Immunization ( season) 2024 06/09/2022, 05/31/2021, 10/13/2020, Additional history exists Influenza Immunization (#1) 2025 05/09/2024, 1 08/10/2021 Respiratory Syncytial Virus (RSV) Immunization (Adult) (1 - 1-dose 75+ series) 09/30/2042 PSA Discussion Completed 12/01/2008 DTaP/Tdap/Td Immunization Discontinued 10/31/2016, 07/2011 TdaP Immunization Completed 10/31/2016, 08/02/2011 Zoster Immunization Completed 05/09/2024, 3 Human Papillomavirus (HPV) Immunization Aged Out No longer eligible based on patient's age to complete this topic Meningococcal Immunization (ACWY) Aged Out No longer eligible based on patient's age to complete this topic Rotavirus Immunization Aged Out No lo nger eligible based on patient's age to complete this topic Medical Devices Implanted Type Area Supervisor Electronic Coils Device Identifier Shelf Expiration Date Model / Serial / Lot Stent Ureteral 5fr 2.1fr 26cm 2 Pigtail Curve 2 Durometer Taper Tip Loprfl Graduated Polaris Ultra - [id number] Implanted:Qty : 2 on 07/03/2018 by Steve Ocampo MD at [facility] IMPLANT [employer] [id number] 0 / / NONE Stent Ureteral 6fr 26cm Pigtail Curve Taper Tip Bladder Jamie Loprfl Lg Inner Lumen Contour Percuflex - [id number] Implanted:Qty : 1 on 07/09/2018 by Troy Reyes MD at [facility] IMPLANT Right: Ureter [employer] 04/29/2021 [id number] / / [id number] Procedures Procedure Name Priority Date/Time Associated Diagnosis Comments PSA DIAGNOSTIC,TOTAL Routine 12/01/2008 2:00 PM CDT from Last 3 Months or Most Recently Relevant to Health Maintenance Results * PSA PROSTATIC SPECIFIC AG, DIAG (12/01/2008 2:00 PM CDT) PSA (PROSTATE SPECIFIC ANTIGEN) 0.9 <4.0 NG/ML [facility] 12/01/2008 2:00 PM CDT 12/01/2008 2:15 PM CDT us Mahendra Cox MD CHEMISTRY ORDERABLES nal Result [facility] [address] [place] [address] from Last 3 Months or Most Recently Relevant to Health Maintenance Insurance [facility] [place] Advance Directives * Full Code (Latest Code Status on File) Date Activated Date Inactivated Comments 07/08/2018 3:26 PM 07/10/2018 2:04 PM CPR-Full Treat ment: FULL ARREST: Attempt Resuscitation/CPR wit intubation and mechanical ventilation. PRE-ARREST: Use entire range of life support measures to stabilize the patient. * Full Code Date Activated Date Inactivated Comments 04/20/2018 12:02 AM 04/20/2018 5:43 PM CPR-Full Treatment: FULL ARREST: Attempt Resuscitation/CPR wit intubation and mechanical ventilation. PRE-ARREST: Use entire range of life support measures to stabilize the patient. Care Teams Casting Machine Set Up Operator Relationship Specialty Start Date End Date Jose Juan Rocha II, MD [address] [place] [address] PCP - General 01/31/10
--- OUTSIDE RECORDS SUMMARY | 2025-02-20 14:58 | XMS_ITS | Clinical Summary ---
Author Organization [facility] Address [address] [place] [address] Care Team Providers Care Grade And Center Marker Name Role Phone Laila Alfonso MD Unavailable Unava ilable Source Comments This disclosure is being made pursuant to the Know[employer] program and maynot contain all information available regarding this patient.[facility] Allergies Active Allergy Reactions Criticality Noted Date Comments Hydromorphone Hcl Nausea Only Low 08/25/2015 Medications VITAMIN D PO Take by mouth. Active Coenzyme Q10 10 MG capsule Take 10 mg by mouth daily. Active cetirizine (ZYRTEC) 10 MG tablet Take 10 mg by mouth daily as needed for Allergies. Active fluticasone NASAL (FLONASE) 50 MCG/ACT nasal spray 2 sprays by Nasal route daily. to each nostril Active febuxostat (ULORIC) 80 MG TABS tabletIndications:C hronic gout of multiple sites, unspecified cause Take 1 (one) tablet by mouth daily. 90 tablet 1 3 Active hydrochlorothiazide (MICROZIDE) 12.5 MG capsuleIndications: Essential hypertension Take 1 (one) capsule by mouth daily. 90 capsule 1 3 Active omeprazole (PRILOSEC) 20 MG capsuleIndications: Gastroesophageal reflux disease without esophagitis Take 1 (one) capsule by mouth 2 (two) times daily. 180 capsule 1 3 Active pravastatin (PRAVACHOL) 40 MG tabletIndications:M ixed hyperlipidemia Take 1 (one) tablet by mouth daily. EVENING 90 tablet 1 3 Active lisinopril 40 MG tablet Take 1 (one) tablet by mouth daily. 90 tablet 1 3 Active nebivolol (BYSTOLIC) 10 MG tablet Take 1 (one) tablet by mouth daily. 30 tablet 5 3 Active Active Problems Problem Noted Date Diagnosed Date Hepatic steatosis 10/19/2022 01/15/2023 GERD (gastroesophageal reflux disease) 3 01/15/2023 Thumb tendonitis 01/12/2022 Calculus of gallbladder with out cholecystitis without obstruction 01/11/2021 Aortic calcification 01/11/2021 PAD (peripheral artery disease) 01/11/2021 Vitamin D deficiency 01/11/2021 Excessive daytime sleepiness 10/05/2020 Chronic gout of multiple sites 07/12/2016 Morbid obesity due to excess calories 06/05/2016 Benign non-nodular prostatic hyperplasia without lower urinary tract symptoms 01/06/2016 Wellness examination 12/01/2014 Sciatica 04/06/2014 Disorder of bursae and tendons in shoulder regio n 09/29/2013 Overview (04/06/2014): Overview: RICK ELIAS MD Testicular hypofunction 10/24/2011 Overview (04/06/2014): Overview: RICK ELIAS MD Mixed hyperlipidemia 10/19/2011 Overview (04/06/2014): Overview: RICK ELIAS MD Malaise and fatigue 10/19/2010 Overview (04/06/2014): Overview: RICK ELIAS MD Obstructive sleep apnea 06/16/2010 Overview (04/06/2014): Overview: RICK ELIAS MD Calculus of kidney 08/16/2009 Overview (04/06/2014): Overview: RICK ELIAS MD Essential hypertension 02/19/2009 Overview (04/06/2014): Overview: RICK ELIAS MD Tenosynovitis of foot and ankle 08/28/2006 Overview (04/06/2014): Overview: AMBER REY MD Resolved Problems Problem Noted Date Diagnosed Date Resolved Date Knee pain, right 08/25/2015 07/12/2021 Shingles 08/10/2014 07/12/2016 Rash of face 08/10/2014 07/12/2016 Back pain 04/06/2014 07/12/2016 Pain in thoracic spine 02/24/201307/12 Overview (04/06/2014): Overview: RICK ELIAS MD Dermatitis 10/07/2012 07/12/2016 Overview (04/06/2014): Overview: KARTHIK ORTIZ MD Localized osteoarthrosis 10/26/201105/2017 Overview (04/06/2014): Overview: RICK ELIAS MD Pain in soft tissues of limb 10/24/2011 07/12/2016 Overview (04/06/2014): Overview: RICK ELIAS MD Dizziness 10/05/2011 07/12/2016 Overview (04/06/2014): Overview: RICK ELIAS MD Chest pain 09/29/2011 07/12/2021 Overview (04/06/2014): Overview: RICK ELIAS MD Shortness of breath 09/29/2011 07/12/19 17 Overview (04/06/2014): Overview: RICK ELIAS MD Special screening for malign ant neoplasm of prostate 10/19/2010 07/12/2016 Overview (04/06/2014): Overview: LANDY LOZANO ASST Gout 06/16/2010 07/12/2016 Overview (04/06/2014): Overview: RICK ELIAS MD Uric acid nephrolithiasis 06/16/2010 Overview (04/06/2014): Overview: ASHLEY Johnson RUSHING Pain in joint, lower leg 12/16/200905/2017 Overview (04/06/2014): Overview: EDDA PERLA MD Personal history of urinary calculi 08/16/2009 07/12/2016 Overview (04/06/2014): Overview: RICK ELIAS MD Disorder of male genital organs 02/19/2009 07/12/2016 Overview (04/06/2014): Overview: CAMILLA MCKEON MD Mixed hyperlipidemia 09/30/2007 022 Overview (04/06/2014): Overview: RICK ELIAS MD Encounter for counseling 08/05/200705/2017 Overview (04/06/2014): Overview: ALEXIA COOK [facility] Elevated blood pressure reading 08/05/2007 07/12/2016 Overview (04/06/2014): Overview: AMBER REY MD Benign hypertrophy of prostate 08/05/2007 07/12/2016 Overview (04/06/2014): Overview: AMBER REY MD Bronchitis 04/20/2006 07/12/2016 Overview (04/06/2014): Overview: Edelmira MOLINA Other diseases of nasal cavi ty and sinuses(478.19) 04/20/2006 07/12/2016 Overview (04/06/2014): Overview: Edelmira Jaramillo SPEC Sialoadenitis 02/14/2006 01/11/2021 Overview (04/06/2014): Overview: Edelmira MOLINA Immunizations Immunization Administration Dates Next Due COVID-19 (MODERNA-BIVALENT) mRNA ages 12+ (50 mCg/0.5 mL) 06/09/2022 COVID-19 (PFIZER-purple cap) MRNA ages 12+ 05/31,10/13/2020,09/15/2020 Influenza, inactivated, quad rivalent, ALL AGES 6 months and older, single dose syringe/vial 06/09/2022 Tdap 10/31/2016,08/02/2011 Family History Medical History Relation Name Comments Diabetes Brother Diabetes Father Heart disease Father High cholesterol Father Prostate cancer Father Arthritis Mother Diabetes Mother Hypertension Mother Relation Name Status Comments Brother Father Mother Social History Tobacco Use Types Packs/Day Years Used Date Smoking Tobacco: Never Smokeless Tobacco: Never Tobacco Cessation:Counseling Given: Not Answered Alcohol Use Standard Drinks/Week Comments No 0 (1 standard drink = 0.6 oz pur e alcohol) PHQ-2 Answer Date Recorded PHQ-2 Total Score 0 01/15/2023 Sex and Gender Information Value Date Recorded Sex Assigned at Not on file 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 Gender Identity Male 10/20/2020 3:58 PM CDT Sexual Orientation Straight 10/20/2020 3: 58 PM CDT Last Filed Vital Signs Vital Sign Reading Time Taken Comments Blood Pressure 122/74 01/15/2023 9:48 AM CDT Pulse 69 01/15/2023 9:48 AM CDT Temperature 36.6 C (97.9 F) 01/15/2023 9:48 AM CDT Respiratory Rate 16 01/15/2023 9:48 AM CDT Oxygen Saturation 97% 01/15/2023 9:48 AM CDT Inhaled Oxygen Concentration - - Weight 142.6 kg (314 lb 6.4 oz) 01/15/2023 9:48 AM CDT Height 175.3 cm (5' 9) 01/15/2023 9:48 AM CDT Body Mass Index 46.43 01/15/2023 9:48 AM CDT Plan of Treatment Health Maintenance Due Date Last Done Comments CT Colonography 1967 Colonoscopy 1967 Colorectal Cancer Screening 1965 Fecal DNA Test 1965 Lab-Hepatitis C Screening 1965 Sigmoidoscopy 1967 Hepatitis B Vaccine (1 of 3 - 19+ 3-dose series) 09/30/1986 FOBT/FIT 1987 Pneumococcal Vaccines 50+ (1 of 1 - PCV) 09/30/2017 Zoster (Shingles) Vaccine 50+ (1 of 2) 09/30/2017 Eye (Ophthalmology) Exam 06/19/2019 018, 11/29/2017, 10/29/2017, Additional history exists Annual Wellness Visit 01/16/2024 01/15/2023 , 01/12/2022, 01/11/2021, Additional history exists COVID-19 Vaccine ( season) 2024 06/09/2022, 05/31/2021, 10/13/2020, Additional history exists Influenza Vaccine (#1) 2025 06/09/2022 Tetanus/Pertussis Vaccine Teen/Adult (3 - Td or Tdap) 10/31/2026 10/31/2016, 08/02/2011 Lab-Cholesterol Screening 01/13/20282022, 07/13/2022, 01/06/2022, Additional history exists RSV Adult (1 - 1-dose 75+ series) 09/30/2042 HIB Vaccine Aged Out No longer eligi ble based on patient's age to complete this topic HPV Vaccine (9-26yo & Shared Decision 27-45yo) Aged Out No longer eligible based on patient's age to complete this topic Hepatitis A Vaccine Aged Out No longe r eligible based on patient's age to complete this topic IPV Vaccine Aged Out No longer eligi ble based on patient's age to complete this topic Meningococcal Conjugate Vaccine Aged Out No longer eligible based on patient's age to complete this topic RSV < 20 Months Aged Out No longer el igible based on patient's age to complete this topic Goals Goal Patient Goal Type Associated Problems Recent Progress Patient-Stated? Author Blood Pressure < 140/90 Blood Pressure 122/74(2022 9:48 AM CDT) No Rick Elias MD Note: Assessment of Goals: Readiness to Complete Goal: understands importance Barriers: none Reviewed with whom: patient To assist in achieving goal, patient was given: patient log Procedures Procedure Name Priority Date/Time Associated Diagnosis Comments LIPID PANEL Routine 01/12/2023 8:10 AM CDT Essential hypertension Mixed hyperlipidemia EYE EXAM Routine 06/19/2018 from Last 3 Months or Most Recently Relevant to Health Maintenance Results * Lipid panel (01/12/2023 8:10 AM CDT) Cholesterol 144 50 - 200 mg/dL 01/12/2023 7:55 PM [facility] Comment: ---- Cholesterol Guidelines: Optimal: <200 mg/dL Borderline: 200-240 mg/dL High Risk: >240 mg/dL Triglycerides 130 20 - 150 mg/dL 01/12/2023 7:55 PM [facility] Comment: ---- Interpretation of Triglycerides: Normal: 20-150 mg/dL Borderline High: 150-199 mg/dL High: 200-499 mg/dL Very High: >/= 500 mg/dL HDL Cholesterol 34 mg/dL 7:55 PM [facility] Comment: ---- Interpretation of HDL values: Males: Favorable: >55 mg/dL Moderate Risk: 35-55 mg/dL Elevated Risk: <35 mg/dL Females: Favorable: >65 mg/dL Moderate Risk: 45-65 mg/dL Elevated Risk: <45 mg/dL LDL, Calculated 84 1 - 129 mg/dL 01/12/2023 7:55 PM [facility] Comment: ---- LDL cholesterol clinical guidelines: Optimal: <100 mg/dL Near optimal/above optimal: 100-129 mg/dL Borderline High: 130-159 mg/dL High: 160-189 mg/dL Very High: >/= 190 mg/dL Calculated LDL may not be valid when triglycerides are >400 mg/dL. VLDL Cholesterol 26 0 - 40 mg/dL 01/12/2023 7:55 PM [facility] Comment: ---- Interpretation of VLDL: Desirable: 5-30 mg/dL Borderline: 30-40 mg/dL Elevated: 40-100 mg/dL Very Elevated: >100 mg/dL Cholesterol/HDL Ratio 4.2 01/12/2023 7:55 PM [facility] Comment:Performed at [facility], [address] [place] [address], ([phone], unless otherwise noted. Serum 01/12/2023 8:10 AM CDT 01/12/2023 4:41 PM CDT us Rick Elias MD LAB BLOOD ORDERABLES Final Resu lt [facility] [address] [place] [phone] [facility] [address] [place] [address] * Eye exam (06/19/2018) us Not In System Provider NURSING ACTIVITY ORDERABLES - ONCE OR AT INTERVALS Final Result from Last 3 Months or Most Recently Relevant to Health Maintenance Insurance [facility] Care Teams Grade And Center Marker Relationship Specialty Start Date End Date Laila Alfonso MD Consulting Physician Dermatology 12/05/18
--- OUTSIDE RECORDS SUMMARY | 2025-02-20 14:58 | XMS_ITS | Encounter Summary ---
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 Gender Identity Male 10/20/2020 3:58 PM CDT Sexual Orientation Straight 10/20/2020 3: 58 PM CDT documented as of this encounter Last Filed Vital Signs Vital Sign Reading Time Taken Comments Blood Pressure 130/81 10/07/2007 10:58 AM CDT Pulse 93 10/07/2007 10:58 AM CDT Temperature 37 C (98.6 F) 10/07/2007 10:58 AM CDT Respiratory Rate 18 10/07/2007 10:58 AM CDT Oxygen Saturation - - Inhaled Oxygen Concentration - - Weight 115.2 kg (254 lb) 10/07/2007 10:58 AM CDT Height - - Body Mass Index 37.51 08/05/2007 9:10 AM WEEKDAY BABYSITTER documented in this encounter Plan of Treatment Not on file documented as of this encounter Visit Diagnoses Not on filedocumented in this encounter Care Teams Family Life Counselor Relationship Specialty Start Date End Date Jose Juan Rocha MD PCP - General Family Medicine 04/06/14 05/05/24 Laila Alfonso MD Consulting Physician Dermatology 12/05/18 documented as of this encounter
--- OUTSIDE RECORDS SUMMARY | 2025-02-20 14:58 | XMS_ITS | Encounter Summary ---
Author Organization [facility] Address [address] [place] [address] Care Team Providers Care Assembler Trim Name Role Phone Jose Juan Rocha MD Primary Care Provider Unavaila Laila Adkins MD Unavailable Unava ilable Encounter Details Date Type Department Care Team (Latest Contact Info) Description 10/19/2010 Historical Office Visit [facility] [place] [address] [place] [id number] Jose Juan Rocha MD Other and unspecified hyperlipidemia; Gout, unspecified; Special screening for malignant neoplasm of prostate Social History Tobacco Use Types Packs/Day Years Used Date Smoking Tobacco: Never Assessed Sex and Gender Information Value Date Recorded Sex Assigned at Not on file 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 Gender Identity Male 10/20/2020 3:58 PM CDT Sexual Orientation Straight 10/20/2020 3: 58 PM CDT documented as of this encounter Last Filed Vital Signs Vital Sign Reading Time Taken Comments Blood Pressure 126/74 10/19/2010 9:00 AM CDT Pulse 76 10/19/2010 9:00 AM CDT Temperature 36.6 C (97.9 F) 10/19/2010 9:00 AM CDT Respiratory Rate 20 10/19/2010 9:00 AM CDT Oxygen Saturation - - Inhaled Oxygen Concentration - - Weight 121.3 kg (267 lb 8 oz) 10/19/2010 9:00 AM CDT Height 175.3 cm (5' 9) 10/19/2010 9:00 AM CDT Body Mass Index 39.5 10/19/2010 9:00 AM CDT documented in this encounter Progress Notes * Jose Juan Rocha MD - 10/19/2010 9:00 AM CDT Nursing Chief Complaint/Reason For Encounter PHYSICAL Intake Note PT. IS HERE TODAY FOR A YEARLY PHYSICAL WITH LABS. HE ALSO NEEDS MEDS REFILLED. PT. ALSO C/O HIS L FOOT IS STILL HURTING. HE SEEN ON THE FOR THIS. SHE TOLD HIM IT WAS GOUT AND GAVE HIM PREDNISONE.. Tobacco history reviewed and appropriate changes made to the Social History., Medication list givenand reviewed with patient/family and voices understanding. Subjective HPI HERE FOR CHECK UP GOUT FLARE SEVERAL WEEKS AGO STILL NO BETTER NO URIC ACID LEVEL FOR A WHILE Allergies NKA Past Med/Surg History Problems Advice/health instruction (7); First Visit: Aug 05 2007, Last Visit: Oct 10 2010 Elevated blood pressure w/o hypertension (1); First Visit: Aug 05 2007, Last Visit: Aug 05 2007 Hyperlipidemia (3); First Visit: Sep 30 2007, Last Visit: Jun 16 2010 Pain, limb (1); First Visit: Aug 28 2006, Last Visit: Aug 28 2006 Prostatic hypertrophy, benign (1); First Visit: Aug 05 2007, Last Visit: Aug 05 2007 Tenosynovitis, foot and/or ankle (1); First Visit: Aug 28 2006, Last Visit: Aug 28 2006 Med List last modified Oct 19 2010 Allopurinol 300 mg Tab, 1 tablet(s) by mouth daily taking lisinopril-hydrochlorothiazide 20 mg-25 mg Tab, 1 tablet(s) by mouth daily, 30 tablet(s) renewed Urocit-K 10 10 mEq (1,080 mg) Tab, 1 tab(s) by mouth 2 times/day taking discontinued (COURSE COMPLETE) Preferred Pharmacy [place], [place] [[facility], [address] [place] [address]] Social History last modified 10/10/2010 Reviewed: 10/19/2010 Tobacco Never smoked; Comments Tobacco no use; Tobacco reviewed with patient 10/19/2010 Alcohol Use Non-drinker Caffeine Use Uses caffeine; Amount: heavy (equiv to 4-9 8oz coffee/day) Drug Misuse No reported history Exercise Sedentary Home Safety Risk Seat belt worn consistently; Smoke detectors in home Personal: Ethnicity: 1; Race: ; Employer: [employer]; Occupation: [employer]ER TRAWL[employer]; Multiple : No Review of systems Constitutional No fever, No chills, No abnormal weight gain, No abnormal weight loss, No URI symptoms Eyes/ENT/Mouth No Visual disturbances, No eye itching, No eye pain, No eye discharge, No epistaxis, No throat pain, No hoarseness, No ear pain, No tinnitus, No hearing loss Cardiorespiratory No chest pain, No palpitations, No claudication, No orthopnea, No paroxysmal nocturnal dyspnea, No lower extremity edema, No pleuritic chest pain, No dyspnea, No cough, No wheezing, No Purulent sputum GI/ No nausea, No vomiting, No abdominal pain, No diarrhea, No constipation, No blood in stool, No dysuria, No Urinary urgency, No Increased frequency of urination, No nocturia, No Enuresis Musculoskeletal/Integumentary No neck pain, No back pain, Arthralgia, Myalgia, No rash, No pruritus, No change noted in any moles, No Cyanosis of skin, No Skin lesions Neuropsychiatric No headaches, No lightheadedness, No vertigo, No syncope, No numbness, No muscle weakness, Not feeling anxious, Not feeling depressed, No difficulty sleeping, Not at risk for violence, No History of psychiatric illness Endocrine/Lymphatic/Allergy No fatigue, No increased thirst, No polyuria, No lymph node swelling, No lymph node tenderness, Does not bruise easily, No Bleeding, No Hayfever, No urticaria, No Anaphylaxis Objective Vital Signs Temp: 97.9??F (Oral) [36.7??C] HR: 76 RR: *20 Blood Pressure: 126/74 (L arm sitting Adult-std cuff) Height: 69 in [175.26 cm] Weight: 267 lb 8 oz lbs [ 121.336 kg ] BMI: 39.5 BSA: 2.337 Pain Scale: 4/10 (Numeric) Location: L FOOT Frequency: Constant Duration: 10 DAYS Significant to Visit: Yes Date/Time: Oct 19 2010 09:00 Physical Exam Constitutional alert, appropriate, no distress, non-toxic Neck supple, no mass, no thyromegaly, trachea midline, no JVD, no bruit, full ROM Eyes/ENT lids/conj clr, PERRL, EOMIB, discs/fundi symm, TM's/canals clr, hearing OK, MM moist/clr Cardio and Respiratory RRR, no m/r/g/, PMI nml, pulses symm, no edema, chest symm, clear to auscultation, no R/R/W GI/ soft, NT/ND, positive BS X 4, no mass Musculoskeletal/Skin/Lymphatics back symm/NT, extremities symm, FROM, well hydrated, nml perfusion, no lesions, cervical, supraclavicular, axillary, inguinal nodes sym/nml CHRONIC FOOT PAIN RELATED TO GOUT Neurologic and Psychiatric CN II-XII intact, DTR 2/4 symm, MS 5/5 symm, sensory exam symm, gait/coordination intact, memory intact, A&O X 3, mood/affect wnl, judgement/insight appropriate Assessment Assessments Advice/health instruction (ICD-9 billing code: V65.40) Gout (ICD-9 billing code: 274.9) Hyperlipidemia (ICD-9 billing code: 272.4) Hypertension, essential (ICD-9 billing code: 401.9) Malaise and fatigue (not chronic fatigue syndrome) (ICD-9 billing code: 780.79) Screening for prostate cancer (ICD-9 billing code: V76.44) Billing Detail Medication Management: New/current prescription meds Review and/or order of lab tests; Review and/or order of test in the medicine section of CPT Plan Lab Orders CBC with Differential(Ordered - Malaise and fatigue (not chronic fatigue syndrome)) Comprehensive Metabolic Panel (CMP)(Ordered - Hyperlipidemia) Lipid Panel(Ordered - Hyperlipidemia) Prostate Specific AG (PSA Total), Screening(Ordered - Screening for prostate cancer) Uric Acid, Serum(Ordered - Gout) Prescription Orders Rx Cart - Oct 19 2010 09:26 lisinopril-hydrochlorothiazide 20 mg-25 mg Tab, 1 tablet(s) by mouth daily, 30 tablet(s), 5 refills(Hypertension, essential) Cart Status: Submitted Route: Electronic Rx Cart Order Notes: [facility] prescriptions to [place], [place] phone: [phone] fax: [phone] Message for Pharmacy: - Procedure Orders Cholesterol- Pt Ed(Performed - Advice/health instruction) Dietary- Pt Ed(Performed - Advice/health instruction) Exercise- Pt Ed(Performed - Advice/health instruction) Handwashing- Pt Ed(Performed - Advice/health instruction) Immunizations- Pt Ed(Performed - Advice/health instruction) Other orders LABS TODAY HEMOCCULTS Contributors to this Visit Note Documenting Clinician: Purvi LOZANO - Role: TALISHA ancillary; Imaging Processor; Payroll And Benefits Manager; Coroner'S Juror; Grocery Worker; Procedure Baby Formula Worker; Referral Processor Time: Oct 19 2010 09:00 Action: Eamon LOZANO - Role: TALISHA ancillary; Imaging Processor; Payroll And Benefits Manager; Coroner'S Juror; Grocery Worker; Procedure Baby Formula Worker; Referral Processor Time: Oct 19 2010 09:06 Action: Smita ROCHA - Role: Clinician; TALISHA physician; Baby Formula Worker Time: Oct 19 2010 09:26 Action: Smita BORRERO - Role: Clinical; TALISHA nurse; Payroll And Benefits Manager; Nurse; Procedure Baby Formula Worker; Referral Processor; Rx Processor Time: Oct 19 2010 09:28 Action: Smita ROCHA - Role: Clinician; TALISHA physician; Baby Formula Worker Time: Oct 19 2010 09:51 Action: Sign documented in this encounter Plan of Treatment Not on file documented as of this encounter Visit Diagnoses Diagnosis Other and unspecified hyperlipidemia Gout, unspecified Special screening for malignant neoplasm of prostate documented in this encounter Care Teams Assembler Trim Relationship Specialty Start Date End Date Jose Juan Rocha MD PCP - General Family Medicine 04/06/14 05/05/24 Laila Alfonso MD Consulting Physician Dermatology 12/05/18 documented as of this encounter
--- OUTSIDE RECORDS SUMMARY | 2025-02-20 14:58 | XMS_ITS | Encounter Summary ---
Author Organization [facility] Address [address] [place] [address] Care Team Providers Care Surgical Supplies Sterilizer Name Role Phone Jose Juan Rocha MD Primary Care Provider Unavaila Laila Adkins MD Unavailable Unava ilable Encounter Details Date Type Department Care Team (Latest Contact Info) Description 09/29/2013 Historical Office Visit [facility] Family Medicine [place] [address] [place] [id number] Jose Juan Rocha MD Routine general medical examination at a health care facility Social History Tobacco Use Types Packs/Day Years Used Date Smoking Tobacco: Never Assessed Sex and Gender Information Value Date Recorded Sex Assigned at Not on file 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 Gender Identity Male 10/20/2020 3:58 PM CDT Sexual Orientation Straight 10/20/2020 3: 58 PM CDT documented as of this encounter Last Filed Vital Signs Vital Sign Reading Time Taken Comments Blood Pressure 119/80 09/29/2013 9:58 AM CDT Pulse 79 09/29/2013 9:58 AM CDT Temperature 36.7 C (98 F) 09/29/2013 9:58 AM CDT Respiratory Rate 16 09/29/2013 9:58 AM CDT Oxygen Saturation - - Inhaled Oxygen Concentration - - Weight 125.6 kg (277 lb) 09/29/2013 9:58 AM CDT Height 175.3 cm (5' 9) 09/29/2013 9:58 AM CDT Body Mass Index 40.91 09/29/2013 9:58 AM CDT documented in this encounter Progress Notes * Jose Juan Rocha MD - 09/29/2013 9:58 AM CDT Nursing Chief Complaint/Reason For Encounter YEARLY PHYSICAL AND LABS Intake Note PATIENT IS HERE FOR A YEARLY PHYSICAL AND LABS. HE IS ALSO HAVING CHEST PAIN AND NECK/LEFT SHOULDERPAIN. HE SAYS HIS FEET HURT AND WANTS TO KNOW IF HE NEEDS A REFERRAL FOR HIS ORTHOTICS.. Quality Metrics Prevention An influenza (flu) vaccine is recommended for all patients 6 months of age and over. Influenza vaccine not ordered or administered for the following reason: Declined Tobacco Weight Screening BMI is greater than 30. Maintain a healthy weight determined by you and your provider. Follow a diet that includes: fruits, vegetables, whole grains, fat free or low fat milk and milk products, lean meats, poultry, fish, beans, and eggs; and is low in salt, fat, and sugars. Engage in daily exerciseas tolerated. Depression Screening Over the past 2 weeks, have you felt little interest or pleasure in doing things? No Over the past 2 weeks, have you felt down, depressed or hopeless? No Hypertension Blood pressure within normal limits, no follow up required Subjective HPI HERE FOR F/U ON CPAP BECOMING MORE FATIGUED AGAIN TOOK CHIP IN FOR EVAL AND HAVING SOME APNEA AND BIG CHANGES IN PRESSURES WHILE ON THE MACHINE NO SOB N/ VD/C NO URINE ISSUES INTERMITTENT CHEST WALL PAIN, NOT SOB WITH IT AND NO DIAPHORESIS HAD STRESS FOR SAME THING 2 YEARS AGO RADIATES IN TO L SHOULDER PAIN IN NECK POSTEROLATERALLY TO PALPATION Allergies Reviewed: Sep 29 2013 NKA Past Med/Surg History Problems Advice/health instruction (14); First Visit: Aug 05 2007, Last Visit: Oct 07 2012 Elevated blood pressure w/o hypertension (1); First [...] Aug 28 2006 Med List last modified Sep 29 2013 Reviewed: Sep 29 2013 lisinopril 40 mg tablet, 1 tablet(s) by mouth daily, 30 tablet taking pravastatin 40 mg tablet, 1 tablet(s) by mouth at bedtime, 30 tablet taking Uloric 80 mg tablet, 1 TABLET BY MOUTH DAILY, 30 tablet taking discontinued (NOT TAKING) discontinued (NOT TAKING) Preferred Pharmacy [place], [place] [[facility], [address] [place] [address]] Family History last modified Oct 07 2012 Reviewed: Sep 29 2013 Positive Family History for: Coronary artery disease Diabetes mellitus Hypertension Prostate cancer Social History last modified Sep 29 2013 Reviewed: Sep 29 2013 Tobacco Never smoked; Never used smokeless; Comments Tobacco no use; Tobacco reviewed with patient 09/29/2013 Alcohol Use Non-drinker Caffeine Use Uses caffeine; Amount: heavy (equiv to 4-9 8oz coffee/day) Diet/Nutrition Poor diet Drug Misuse No reported history Exercise Sedentary Home Safety Risk Seat belt worn consistently; Smoke detectors in home Personal: Ethnicity: Not ; Race: WHITE; Primary language: SWEDISH; Marital status: Review of systems Constitutional: No fever, No chills, No abnormal weight gain, No abnormal weight loss, No URI symptoms Eyes/ENT/Mouth: No Visual disturbances, No eye itching, No eye pain, No eye discharge, No epistaxis, No throat pain, No hoarseness, No ear pain, No tinnitus, No hearing loss Cardiorespiratory: Chest pain, No palpitations, No claudication, No orthopnea, No paroxysmal nocturnal dyspnea, No lower extremity edema, No pleuritic chest pain, No dyspnea, No cough, No wheezing, No Purulent sputum GI/: No nausea, No vomiting, No abdominal pain, No diarrhea, No constipation, No blood in stool, No dysuria, No Urinary urgency, No Increased frequency of urination, No nocturia, No Enuresis Musculoskeletal/Integumentary: Neck pain, No back pain, Arthralgia, Myalgia, No rash, No pruritus, No change noted in any moles, No Cyanosis of skin, No Skin lesions Neuropsychiatric: No headaches, No lightheadedness, No vertigo, No syncope, No numbness, No muscle weakness, Not feeling anxious, Not feeling depressed, No difficulty sleeping, Not at risk for violence, No History of psychiatric illness Endocrine/Lymphatic/Allergy: Fatigue, No increased thirst, No polyuria, No lymph node swelling, No lymph node tenderness, Does not bruise easily, No Bleeding, No Hayfever, No urticaria, No Anaphylaxis Objective Vital Signs Temp: 98??F (Tymp) [36.7??C] HR: 79 bpm RR: 16 Blood Pressure: 119/80 mmHg (L arm sitting Adult-stdcuff) Height: 69 in [175.26 cm] Weight:277 lbs [125.645 kg ] BMI: 40.9 BSA: 2.372 Date/Time: Sep 29 2013 09:58 Physical Exam Constitutional: alert, appropriate, no distress, [...] lesions, cervical, supraclavicular, axillary, inguinal nodes sym/nml + SPASM SHOULDER BLADE AND L SHOULDER PAIN WITH IMPINGEMENT NO PAIN WITH ABDUCTION Neurologic and Psychiatric: CN II-XII intact, DTR 2/4 symm, MS 5/5 symm, sensory exam symm, gait/coordination intact, memory intact, A&O X 3, mood/affect wnl, judgement/insight appropriate Assessment Assessments Advice/health instruction (ICD-9 billing code: V65.40) Hyperlipidemia (ICD-9 billing code: 272.4) Hypertension, essential (ICD-9 billing code: 401.9) Malaise and fatigue (not chronic fatigue syndrome) (ICD-9 billing code: 780.79) Obstructive sleep apnea syndrome (ICD-9 billing code: 327.23) Pain, foot (ICD-9 billing code: 729.5) Rotator cuff syndrome (ICD-9 billing code: 726.10) Billing Detail Review and/or order of lab tests; Review and/or order of test in the medicine section of CPT Plan Lab Orders CBC with Differential (In_Transit - Hyperlipidemia) Comprehensive Metabolic Panel (CMP) (In_Transit - Hyperlipidemia) Lipid Panel (In_Transit - Hyperlipidemia) T4 Free (Thyroxine Free) (In_Transit - Hypertension, essential) Thyroid Stimulating Hormone (TSH) (In_Transit - Hypertension, essential) Procedure Orders zPt Ed - Colon Cancer Aware (Performed - Advice/health instruction) zPt Ed - Routine Screening (Performed - Advice/health instruction) Physical Therapy Consult Order (Performed - Rotator cuff syndrome), Faxed to [facility] [phone] Greg BORRERO on Sep 29 2013 10:50 Podiatry Consult Order (Performed - Pain, foot), Reason: ORTHOTIC CHECK: Other orders WILL DISCUSS WITH SLEEP LAB ON APPROPRIATE NEXT STEP, SUSPECT WILL NEED ANOTHER TITRATION STUDY AND POSSIBLE REFERRAL TO [facility] TODAY PT OT FOR SHOULDER Contributors to this Visit Note Documenting Clinician: Purvi COOK - Staff Type: Registration Time: Sep 29 2013 09:58 Action: Eamon COOK - Staff Type: Registration Time: Sep 29 2013 10:02 Action: Edmichi ROCHA - Staff Type: MD Time: Sep 29 2013 10:41 Action: Smita LOZANO - Staff Type: J2Ee Android Developer Time: Sep 29 2013 10:46 Action: Smita BORRERO - Staff Type: RN Time: Sep 29 2013 10:50 Action: Smita ROCHA - Staff Type: MD Time: Sep 29 2013 13:11 Action: Sign documented in this encounter Plan of Treatment Not on file documented as of this encounter Visit Diagnoses Diagnosis Routine general medical examination at a health care facility documented in this encounter Care Teams Surgical Supplies Sterilizer Relationship Specialty Start Date End Date Jose Juan Rocha MD PCP - General Family Medicine 04/06/14 05/05/24 Laila Alfonso MD Consulting Physician Dermatology 12/05/18 documented as of this encounter
--- OUTSIDE RECORDS SUMMARY | 2025-02-20 14:58 | XMS_ITS | Encounter Summary ---
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 Gender Identity Male 10/20/2020 3:58 PM CDT Sexual Orientation Straight 10/20/2020 3: 58 PM CDT documented as of this encounter Last Filed Vital Signs Vital Sign Reading Time Taken Comments Blood Pressure 148/90 08/05/2007 9:10 AM KELP CUTTER Pulse 84 08/05/2007 9:10 AM KELP CUTTER Temperature 37.1 C (98.7 F) 08/05/2007 9:10 AM KELP CUTTER Respiratory Rate 16 08/05/2007 9:10 AM KELP CUTTER Oxygen Saturation - - Inhaled Oxygen Concentration - - Weight 116.6 kg (257 lb) 08/05/2007 9:10 AM KELP CUTTER Height 175.3 cm (5' 9) 08/05/2007 9:10 AM KELP CUTTER Body Mass Index 37.95 08/05/2007 9:10 AM KELP CUTTER documented in this encounter Plan of Treatment Not on file documented as of this encounter Visit Diagnoses Not on filedocumented in this encounter Care Teams Inside Sales Advisor Relationship Specialty Start Date End Date Jose Juan Rocha MD PCP - General Family Medicine 04/06/14 05/05/24 Laila Alfonso MD Consulting Physician Dermatology 12/05/18 documented as of this encounter
--- OUTSIDE RECORDS SUMMARY | 2025-02-20 14:58 | XMS_ITS | Encounter Summary ---
Author Organization [employer] Address [address] [place] [address] Care Team Providers Care Electric Razor Mechanic Name Role Phone Jose Juan Rocha MD Primary Care Provider Laila Palumbo MD Unavailable Unava ilable Encounter Details Date Type Department Care Team (Latest Contact Info) Description 10/07/2012 Historical Office Visit [facility] Family [facility] [place] [address] [place] [phone] Elizabeth Garcia MD Contact dermatitis and other eczema due to plants (except food) Social History Tobacco Use Types Packs/Day Years Used Date Smoking Tobacco: Never Assessed Sex and Gender Information Value Date Recorded Sex Assigned at Not on file 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 Gender Identity Male 10/20/2020 3:58 PM CDT Sexual Orientation Straight 10/20/2020 3: 58 PM CDT documented as of this encounter Last Filed Vital Signs Vital Sign Reading Time Taken Comments Blood Pressure 120/60 10/07/2012 2:16 PM CDT Pulse 106 10/07/2012 2:16 PM CDT Temperature - - Respiratory Rate 16 10/07/2012 2:16 PM CDT Oxygen Saturation - - Inhaled Oxygen Concentration - - Weight 127.6 kg (281 lb 6 oz) 10/07/2012 2:16 PM CDT Height 175.3 cm (5' 9) 10/07/2012 2:16 PM CDT Body Mass Index 41.55 10/07/2012 2:16 PM CDT documented in this encounter Progress Notes * Elizabeth Garcia MD - 10/07/2012 2:15 PM CDT Nursing Chief Complaint/Reason For Encounter POISON ALICIA Intake Note PT CAME IN TODAY DUE TO HAVING POISON ALICIA Quality Metrics Influenza vaccination up-to-date? No. BMI is greater than 25. Over the past 2 weeks, have you felt little interest or pleasure in doing things? No. Over the past 2 weeks, have you felt down, depressed, or hopeless? No. Subjective HPI 47 yo man here for SDA: c/o itchy, weaping rash for last 4 days. Getting worse. ROS: no f/c. No ST, SOB. Allergies Reviewed: Oct 07 2012 NKA Past Med/Surg History Problems Advice/health instruction (13); First Visit: Aug 05 2007, Last Visit: Feb 19 2012 Elevated blood pressure w/o hypertension (1); [...] 28 2006, Last Visit: Aug 28 2006 Past Med/Surg History Procedures Procedural - Pt Ed (5); Last Performed: 06/16/2010 Health Maintenance Procedures Procedural - Pt Ed (5); Last Performed: 06/16/2010 Med List last modified Oct 07 2012 Reviewed: Oct 07 2012 lisinopril 40 mg tablet, 1 tablet(s) by mouth daily, 30 tablet taking pravastatin 40 mg tablet, 1 tablet(s) by mouth at bedtime, 30 tablet taking AndroGel 20.25 mg/1.25 gram (1.62 %) Transdermal Gel Pump, *COMPOUND*, 1 month(s) taking (PT STATESHE ISNT TAKING THIS) Uloric 80 mg tablet, 1 TABLET BY MOUTH DAILY, 30 taking Preferred Pharmacy [place], [place] [[place], [address] [place] [address]] Family History last modified Oct 07 2012 Reviewed: Oct 07 2012 Positive Family History for: Coronary artery disease Diabetes mellitus Hypertension Prostate cancer Social History last modified Aug 04 2011 Reviewed: Oct 07 2012 Tobacco Never smoked; Comments Tobacco no use; Tobacco reviewed with patient 10/07/2012 Alcohol Use Non-drinker Caffeine Use Uses caffeine; Amount: heavy (equiv to 4-9 8oz coffee/day) Diet/Nutrition Poor diet Drug Misuse No reported history Exercise Sedentary Home Safety Risk Seat belt worn consistently; Smoke detectors in home Personal: Ethnicity: Not ; Race: WHITE; Primary language: TURKMEN; Marital status: Objective Vital Signs HR: *106 bpm RR: 16 Blood Pressure: 120/60 mmHg (R arm sitting Adult-large cuff) Height: 69 in [175.26 cm] Weight:281 lb 6 oz lbs [127.629 kg ] BMI: 41.6 BSA: 2.388 Date/Time: Oct 07 2012 14:16 Constitutional: Alert, appropriate, no acute distress. Skin +erythematous, blistering rash in linear formation. Assessment Assessments Advice/health instruction (ICD-9 billing code: V65.40) Dermatitis (ICD-9 billing code: 692.9) Billing Detail Medication Management: New/current prescription meds Review and/or order of test in the medicine section of CPT dermatitis, plants - prednisone, benadryl, discussed cool showers and topical options. RTC prn Plan Prescription Orders Rx Cart - Oct 07 2012 17:05 prednisone 10 mg tablet, 4 tablet(s) by mouth daily for 3 days, then 3 daily for 3 days, then 2 daily for 3 days, then 1 daily for 3 days, 30 tablet(s), No refills (Dermatitis) Cart Status: Submitted Route: Electronic Rx Cart Order Notes: [facility] prescriptions to [facility] [place] [id number] phone: [phone]: Message for Pharmacy: - Procedure Orders zPt Ed - Colon Cancer Aware (Performed - Advice/health instruction) zPt Ed - Routine Screening (Performed - Advice/health instruction) Contributors to this Visit Note Documenting Clinician: Zechariah LOPEZ - Staff Type: Office sta Time: Oct 07 2012 14:15 Action: Eamon LOPEZ - Staff Type: Office sta Time: Oct 07 2012 14:21 Action: Smita GARCIA - Staff Type: MD Time: Oct 07 2012 17:06 Action: Smita GARCIA - Staff Type: MD Time: Oct 07 2012 17:06 Action: Sign documented in this encounter Plan of Treatment Not on file documented as of this encounter Visit Diagnoses Diagnosis Contact dermatitis and other eczema due to plants (except food) documented in this encounter Care Teams Electric Razor Mechanic Relationship Specialty Start Date End Date Jose Juan Rocha MD PCP - General Family Medicine 04/06/14 05/05/24 Laila Alfonso MD Consulting Physician Dermatology 12/05/18 documented as of this encounter
--- OUTSIDE RECORDS SUMMARY | 2025-02-20 14:58 | XMS_ITS | Encounter Summary ---
Author Organization [employer] Address [address] [place] [address] Care Team Providers Care Analytical Lab Technician Name Role Phone Jose Juan Rocha MD Primary Care Provider Laila Palumbo MD Unavailable Unava ilable Encounter Details Date Type Department Care Team (Late st Contact Info) Description 10/24/2011 Historical Office Visit [facility] Family Medicine [place] [address] [place] [phone] Elizabeth Garcia MD Pain in limb Social History Tobacco Use Types Packs/Day Years Used Date Smoking Tobacco: Never Assessed Sex and Gender Information Value Date Recorded Sex Assigned at Not on file 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 Gender Identity Male 10/20/2020 3:58 PM CDT Sexual Orientation Straight 10/20/2020 3: 58 PM CDT documented as of this encounter Last Filed Vital Signs Vital Sign Reading Time Taken Comments Blood Pressure 118/74 10/24/2011 2:49 PM CDT Pulse 74 10/24/2011 2:49 PM CDT Temperature 36.7 C (98.1 F) 10/24/2011 2:49 PM CDT Respiratory Rate 20 10/24/2011 2:49 PM CDT Oxygen Saturation - - Inhaled Oxygen Concentration - - Weight 125.2 kg (276 lb) 10/24/2011 2:49 PM CDT Height 175.3 cm (5' 9) 10/24/2011 2:49 PM CDT Body Mass Index 40.76 10/24/2011 2:49 PM CDT documented in this encounter Progress Notes * Elizabeth Garcia MD - 10/24/2011 2:49 PM CDT Nursing Chief Complaint/Reason For Encounter L FOOT PAIN Intake Note PT. IS HERE TODAY DUE TO HIS L FOOT BEING RED AND IT HURTS. THIS HAS BEEN GOING ON SINCE SUN. HE THINKS HE MAY HAVE GOUT: Provided tobacco use cessation counseling, Medication list given and reviewedwith patient/family and voices understanding. Subjective HPI 46 yo man here for SDA: c/o L foot pain for 2 days. +red,swelling. Wore new boots all day 2 days ago, hurt after this. No known trauma. Pain mostly in lateral L foot. Ambulating ok. ROS: No f/c. No other injury Allergies Reviewed: Oct 24 2011 NKA Past Med/Surg History Problems Advice/health instruction (11); First Visit: Aug 05 2007, Last Visit: Oct 19 2011 Elevated blood pressure w/o hypertension (1); [...] Performed: 06/16/2010 Med List last modified Oct 24 2011 Reviewed: Oct 24 2011 lisinopril-hydrochlorothiazide 20 mg-25 mg Tab, 1 tablet(s) by mouth daily, 30 tablet(s) taking pravastatin 40 mg Tab, 1 tablet(s) by mouth at bedtime, 30 tablet(s) taking Uloric 80 mg Tab, one tablet daily, 30 tablet(s) taking Preferred Pharmacy [place], [place] [[place], [address] [place] [address]] Family History last modified Dec 16 2009 Reviewed: Oct 24 2011 Positive Family History for: Coronary artery disease Diabetes mellitus Hypertension Prostate cancer Additional comments: NOTHING NEW TO ADD TO HX Social History last modified Aug 04 2011 Reviewed: Oct 24 2011 Tobacco Never smoked; Comments Tobacco no use; Tobacco reviewed with patient 10/24/2011 Alcohol Use Non-drinker Caffeine Use Uses caffeine; Amount: heavy (equiv to 4-9 8oz coffee/day) Diet/Nutrition Poor diet Drug Misuse No reported history Exercise Sedentary Home Safety Risk Seat belt worn consistently; Smoke detectors in home Personal: Ethnicity: Not ; Race: WHITE; Primary language: null; Marital status: Objective Vital Signs Temp: 98.1??F (Oral) [36.8??C] HR: 74 bpm RR: *20 Blood Pressure: 118/74 mmHg (L arm sitting Adult-std cuff) Height: 69 in [175.26 cm] Weight:276 lbs [125.192 kg ] BMI: 40.8 BSA: 2.369 Pain Scale: 7/10 (Numeric) Location: L FOOT Frequency: Constant Duration: 2 DAYS Significant to Visit: Yes Date/Time: Oct 24 2011 14:49 Constitutional: Alert, appropriate, no acute distress. Skin: No rash, erythema, or significant skin lesions noted. Musculoskeletal (R,L) edema over L lat malleolus. Malleolus nontender to palp. +TTP at head of 5th MT, les pain, but still TTP along length of 5th MT. No swelling, erythema, warmth distal to ankle. Normal strength, ROM and gait. Pain with distal MT squeeze. X-ray - soft tissue swelling. No fracture. Assessment Assessments Advice/health instruction (ICD-9 billing code: V65.40) Male hypogonadism (ICD-9 billing code: 257.2) Pain, foot (ICD-9 billing code: 729.5) Billing Detail Medication Management: New/current prescription meds Review and/or order of test in the radiology section of CPT; Review and/or order of test in the medicine section of CPT L foot pain - x-ray in office, normal. Diclofenac BID. Discussed shoes. All questionsa nswered. Hypogonadism - androgel prescribed and given coupon card. RTC prn. Plan Prescription Orders Rx Cart - Oct 24 2011 15:45 AndroGel 20.25 mg/1.25 gram (1.62 %) Transdermal Gel Pump, two pumps applied to each shoulder daily, 1 month(s), 2 refills (Male hypogonadism) diclofenac sodium 75 mg Tab, Delayed Release, 1 tablet two times daily as needed with food for pain, 60 tablet,delayed release(ec)(s), No refills Cart Status: Submitted Route: Print Rx Cart Order Notes: Procedure Orders zPt Ed - Calcium Intake (Performed - Advice/health instruction) zPt Ed - Immunizations (Performed - Advice/health instruction) *XR Foot Complete 3 Views Routine (81734) (Performed - Pain, foot), Laterality: Left, Reason: L 5thMT pain, most at head of MT, no hx of trauma Contributors to this Visit Note Documenting Clinician: Zechariah LOZANO - Staff Type: ASST Time: Oct 24 2011 14:49 Action: Eamon LOZANO - Staff Type: ASST Time: Oct 24 2011 14:54 Action: Smita PAGE - Staff Type: Registered Nurse Time: Oct 24 2011 15:02 Action: Smita GARCIA - Staff Type: Physician Time: Oct 24 2011 15:50 Action: Smita GARCIA - Staff Type: Physician Time: Oct 24 2011 15:50 Action: Sign documented in this encounter Plan of Treatment Not on file documented as of this encounter Visit Diagnoses Diagnosis Pain in limb documented in this encounter Care Teams Analytical Lab Technician Relationship Specialty Start Date End Date Jose Juan Rocha MD PCP - General Family Medicine 04/06/14 05/05/24 Laila Alfonso MD Consulting Physician Dermatology 12/05/18 documented as of this encounter
--- OUTSIDE RECORDS SUMMARY | 2025-02-20 14:58 | XMS_ITS | Encounter Summary ---
Author Organization [employer] Address [address] [place] [address] Care Team Providers Care Pipe Coverer And Insulator Name Role Phone Jose Juan Rocha MD Primary Care Provider Laila Palumbo MD Unavailable Unava ilable Encounter Details Date Type Department Care Team (Latest Contact Info) Description 10/10/2010 Historical Office Visit 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 Gender Identity Male 10/20/2020 3:58 PM CDT Sexual Orientation Straight 10/20/2020 3: 58 PM CDT documented as of this encounter Last Filed Vital Signs Vital Sign Reading Time Taken Comments Blood Pressure 118/84 10/10/2010 1:55 PM CDT Pulse 72 10/10/2010 1:55 PM CDT Temperature 36.8 C (98.2 F) 10/10/2010 1:55 PM CDT Respiratory Rate 20 10/10/2010 1:55 PM CDT Oxygen Saturation - - Inhaled Oxygen Concentration - - Weight 121.7 kg (268 lb 6.4 oz) 10/10/2010 1:55 PM CDT Height 175.3 cm (5' 9) 10/10/2010 1:55 PM CDT Body Mass Index 39.64 10/10/2010 1:55 PM CDT documented in this encounter Progress Notes * Elizabeth Garcia MD - 10/10/2010 1:51 PM CDT Nursing Chief Complaint/Reason For Encounter GOUT; Gout; Uric acid nephrolithiasis Intake Note Patient here to see Dr Garcia due to anterior left foot pain. Pain radiates into toes. Patient calledthis morning and was prescribed prednisone by Dr Rocha to be picked up at pharmacy. Pt states flareup started Sunday morning. Patient took Ibuprofen prior to visit. (total dose 600mg) Tobacco history reviewed and appropriate changes made to the Social History., Medication list givenand reviewed with patient/family and voices understanding. Subjective HPI 45 yo man here for SDA: Hx of gout, c/o foot pain for 3 days. Getting worse. Last gouty flair Apr 2010. Pain across midfoot, generalized. +erythema, edema, warmth. Better with ibuprofen. ROS: no f/c. Allergies NKA Past Med/Surg History Problems Advice/health instruction (6); First Visit: Aug 05 2007, Last Visit: Jun 16 2010 Elevated blood pressure w/o hypertension (1); [...] 28 2006 Med List last modified Oct 10 2010 Allopurinol 300 mg Tab, 1 tablet(s) by mouth daily taking Lisinopril-Hydrochlorothiazide 20 mg-25 mg Tab, 1 tablet(s) by mouth daily, 30 tablet(s) taking prednisone 10 mg Tab, 2 tablets by mouth two times daily x 2 days. 1 tablet two times daily x 2 days. Then 1 tablet daily x 3 days. , 7 day(s) taking Urocit-K 10 10 mEq (1,080 mg) Tab, 1 tab(s) by mouth 2 times/day taking Preferred Pharmacy [place], [place] [[place], [address] [place] [address]] Family History last modified 12/16/2009 Reviewed: 10/10/2010 Positive Family History for: Coronary artery disease Diabetes mellitus Hypertension Prostate cancer Additional comments: NOTHING NEW TO ADD TO HX Social History last modified 10/10/2010 Reviewed: 10/10/2010 Tobacco Never smoked; Comments Tobacco no use; Tobacco reviewed with patient 10/10/2010 Alcohol Use Non-drinker Caffeine Use Uses caffeine; Amount: heavy (equiv to 4-9 8oz coffee/day) Drug Misuse No reported history Exercise Sedentary Home Safety Risk Seat belt worn consistently; Smoke detectors in home Personal: Ethnicity: 1; Race: ; 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 Normla ROM and strength. Limping gait. +erythema, edema, warmth. No specific joint pain Assessment Assessments Advice/health instruction (ICD-9 billing code: V65.40) Gout (ICD-9 billing code: 274.9) Uric acid nephrolithiasis (ICD-9 billing code: 274.11) Billing Detail Review and/or order of test in the medicine section of CPT suspect gout. Cont with prednisone as prescribed. Tylenol prn for pain. F/u next week if no better. RTC 1 wk if no better. Plan Procedure Orders Calcium Intake - Pt Ed(Performed - Advice/health instruction) Immunizations- Pt Ed(Performed - Advice/health instruction) Contributors to this Visit Note Documenting Clinician: Zechariah FAJARDO - Role: Biotechnician; Nurse; Procedure Adjunct Physics Instructor; Referral Processor; Rx Processor Time: Oct 10 2010 13:51 Action: Eamon FAJARDO - Role: Biotechnician; Nurse; Procedure Adjunct Physics Instructor; Referral Processor; Rx Processor Time: Oct 10 2010 13:59 Action: Smita GARCIA - Role: Clinician; TALISHA physician; Adjunct Physics Instructor Time: Oct 10 2010 14:17 Action: Smita GARCIA - Role: Clinician; TALISAH physician; Adjunct Physics Instructor Time: Oct 10 2010 14:17 Action: Sign documented in this encounter Plan of Treatment Not on file documented as of this encounter Visit Diagnoses Diagnosis Gout, unspecified documented in this encounter Care Teams Pipe Coverer And Insulator Relationship Specialty Start Date End Date Jose Juan Rocha MD PCP - General Family Medicine 04/06/14 05/05/24 Laila Alfonso MD Consulting Physician Dermatology 12/05/18 documented as of this encounter
--- OUTSIDE RECORDS SUMMARY | 2025-02-20 14:58 | XMS_ITS | Encounter Summary ---
Author Organization [employer] Address [address] [place] [address] Care Team Providers Care Project Intern Name Role Phone Jose Juan Rocha MD Primary Care Provider Laila Palumbo MD Unavailable Unava ilable Encounter Details Date Type Department Care Team (Late st Contact Info) Description 10/05/2011 Historical Office Visit [facility] [address] [facility] [address] [place] [address] Aline Akhtar, JACQUELINE [address] [facility] [address] [place] [address] Social History Tobacco Use Types Packs/Day Years Used Date Smoking Tobacco: Never Assessed Sex and Gender Information Value Date Recorded Sex Assigned at Not on file 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 Gender Identity Male 10/20/2020 3:58 PM CDT Sexual Orientation Straight 10/20/2020 3: 58 PM CDT documented as of this encounter Progress Notes * Aline Akhtar NP - 10/05/2011 9:05 AM CDT Nursing: For dictation, please see Portal, Order verified in [facility], Order verified by (Initials): BK,Procedure performed: Cardiolite Nuclear Stress Test, IV(s) Documentation: 10/05/11 0750 SALINE LOCK 3CC LEFT AC 22G 1 ATTEMPT JALEEL CCT 10/05/11 0911 SALINE FLUSH 2CC JALEEL CCT, Supervising Provider: MARCO ANTONIO AKHTAR APN/ DR.MINA [place] NKA Med List last modified Oct 05 2011 Reviewed: Oct 05 2011 lisinopril-hydrochlorothiazide 20 mg-25 mg Tab, 1 tablet(s) by mouth daily, 30 tablet(s) taking Uloric 80 mg Tab, one tablet daily, 30 tablet(s) taking Preferred Pharmacy [place], [place] [[place], [address] [place] [address]] Social History last modified Aug 04 2011 Tobacco Never smoked; Comments Tobacco no use; Tobacco reviewed with patient 09/29/2011 Alcohol Use Non-drinker Caffeine Use Uses caffeine; Amount: heavy (equiv to 4-9 8oz coffee/day) Diet/Nutrition Poor diet Drug Misuse No reported history Exercise Sedentary Home Safety Risk Seat belt worn consistently; Smoke detectors in home Personal: Ethnicity: Not Provided; Race: WHITE; Primary language: null; Marital status: Contributors to this Visit Note Documenting Clinician: Yared Bains Type: NONE Time: Oct 05 2011 09:05 Action: Eamon HERNANDEZ - Staff Type: NONE Time: Oct 05 2011 09:06 Action: Smita Wells Staff Type: Physician Time: Oct 05 2011 10:14 Action: Smita Wells Staff Type: Physician Time: Oct 05 2011 11:46 Action: Gregor AKHTAR - Staff Type: Physician Time: Oct 05 2011 16:21 Action: Attest PHYSICAL EXAMINATION PORTION OF A TREADMILL NUCLEAR STRESS RE: Harshil Zaman : 1965 DATE OF TESTING: October 05, 2011. REASON FOR TEST: Chest pain and shortness of breath. TEST ORDERED BY: RUBEN Kauffman. In talking with the patient, he relates an atypical cardiac chest discomfort, which occurs at rest and not with activity, after a long days work. He does complain of some occasional mild dyspnea withwalking. PHYSICAL EXAMINATION: Heart tones are clear and regular without murmur or gallop. Lungs are clear bilateral. No peripheral edema. JVP normal. No chest pain or shortness of breath prior to starting the test. Blood pressure: 112/74. Heart rate: 73. BRIEF TESTING NOTE: The patient walked a total of 10 minutes and did experience significant dyspneaby the end of the test and leg fatigue. No chest pain during the test. EKG and nuclear portions of test will be dictated separately by Dr. Lindsay. Aline Akhtar APN DM/ed documented in this encounter Plan of Treatment Not on file documented as of this encounter Visit Diagnoses Not on filedocumented in this encounter Care Teams Project Intern Relationship Specialty Start Date End Date Jose Juan Rocha MD PCP - General Family Medicine 04/06/14 05/05/24 Laila Alfonso MD Consulting Physician Dermatology 12/05/18 documented as of this encounter
--- OUTSIDE RECORDS SUMMARY | 2025-02-20 14:58 | XMS_ITS | Encounter Summary ---
Author Organization [employer] Address [address] [place] [address] Care Team Providers Care Wet Inspector Optical Glass Name Role Phone Jose Juan Rocha MD Primary Care Provider Unavaila ble Laila Alfonso MD Unavailable Unava ilable Encounter Details Date Type Department Care Team (Late st Contact Info) Description 08/28/2006 Historical Office Visit [facility] Conversion Provider, Not In System Social History Tobacco Use Types Packs/Day Years Used Date Smoking Tobacco: Never Assessed Sex and Gender Information Value Date Recorded Sex Assigned at Not on file Legal Sex Male 8:15 AM SVP OPERATIONS Gender Identity Male 10/20/2020 3:58 PM CDT Sexual Orientation Straight 10/20/2020 3: 58 PM CDT documented as of this encounter Last Filed Vital Signs Vital Sign Reading Time Taken Comments Blood Pressure 126/78 08/28/2006 11:42 AM SVP OPERATIONS Pulse 78 08/28/2006 11:42 AM SVP OPERATIONS Temperature - - Respiratory Rate - - Oxygen Saturation - - Inhaled Oxygen Concentration - - Weight - - Height - - Body Mass Index - - documented in this encounter Plan of Treatment Not on file documented as of this encounter Visit Diagnoses Not on filedocumented in this encounter Care Teams Wet Inspector Optical Glass Relationship Specialty Start Date End Date Jose Juan Rocha MD PCP - General Family Medicine 04/06/14 05/05/24 Laila Alfonso MD Consulting Physician Dermatology 12/05/18 documented as of this encounter
--- OUTSIDE RECORDS SUMMARY | 2025-02-20 14:58 | XMS_ITS | Encounter Summary ---
Author Organization [employer] Address [address] [place] [id number] Care Team Providers Care Print Project Manager Name Role Phone Jose Juan Elias MD Primary Care Provider Unavaila Laila Adkins MD Unavailable Unava ilable Encounter Details Date Type Department Care Team (Latest Contact Info) Description 09/29/2011 Historical [facility] [place] [address] [place] [phone] Jose Juan Elias MD Other and unspecified hyperlipidemia; Gout, unspecified; Unspecified essential hypertension; Pain in limb; Chest pain, unspecified; Impaired fasting glucose Social History Tobacco Use Types Packs/Day Years Used Date Smoking Tobacco: Never Assessed Sex and Gender Information Value Date Recorded Sex Assigned at Not on file 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 Gender Identity Male 10/20/2020 3:58 PM CDT Sexual Orientation Straight 10/20/2020 3: 58 PM CDT documented as of this encounter Last Filed Vital Signs Vital Sign Reading Time Taken Comments Blood Pressure 140/72 09/29/2011 9:26 AM CDT Pulse 72 09/29/2011 9:26 AM CDT Temperature 36.2 C (97.2 F) 09/29/2011 9:26 AM CDT Respiratory Rate 18 09/29/2011 9:26 AM CDT Oxygen Saturation - - Inhaled Oxygen Concentration - - Weight 125.6 kg (277 lb) 09/29/2011 9:26 AM CDT Height 175.3 cm (5' 9) 09/29/2011 9:26 AM CDT Body Mass Index 40.91 09/29/2011 9:26 AM CDT documented in this encounter Progress Notes * Jose Juan Elias MD - 09/29/2011 9:26 AM CDT Nursing Chief Complaint/Reason For Encounter CHEST PAIN, RIGHT HEEL PAIN Intake Note PT. HERE TODAY WITH C/O CHEST PAIN X 3-4 MONTHS, STATES IT COMES AND GOES. HE SAYS IT BOTHERS HIM MORE IN THE EVENINGS. HE DENIES CHEST PAIN WITH EXERTION. DOES HAVE SOME S.O.B. HE ALSO C/O RIGHT HEEL PAIN, STATES ITS BEEN HURTING WORSE THE LAST SEVERAL MONTHS. ITS WORSE WHEN HE GETS OUTS OF BED INTHE MORNINGS.: Medication list given and reviewed with patient/family and voices understanding. Subjective HPI PAIN THROUGHOUT WHOLE R HEEL FOR WEEKS NO SOBN/V D/C PAIN IN FOOT HORRIBLE IN MORNING BUT LITTLE HIGHER ON FOOT NO PAIN IN ARCH STABBING CHEST PAINS ON AND OFF LAST COUPLE MINUTES OCCASIONALLY ASSOC W. SOB DIZZY IF STANDS UP FIRST NO N/V D/C NO DIAPHORETIC EPISODES Allergies NKA Past Med/Surg History Problems Advice/health instruction (9); First Visit: Aug 05 2007, Last Visit: Aug 04 2011 Elevated blood pressure w/o hypertension (1); First Visit: Aug 05 2007, Last Visit: Aug 05 2007 Hyperlipidemia (5); First Visit: Sep 30 2007, Last Visit: Oct 21 2010 Pain in limb (1); First Visit: Aug 28 2006, Last Visit: Aug 28 2006 Prostatic hypertrophy, benign (1); First Visit: Aug 05 2007, Last Visit: Aug 05 2007 Tenosynovitis, foot and/or ankle (1); First Visit: Aug 28 2006, Last Visit: Aug 28 2006 Med List last modified Sep 29 2011 Reviewed: Sep 29 2011 lisinopril-hydrochlorothiazide 20 mg-25 mg Tab, 1 tablet(s) by mouth daily, 30 tablet(s) taking discontinued Uloric 80 mg Tab, one tablet daily, 30 tablet(s) taking Preferred [place], [place] [[place], [address] [place] [address]] Family History last modified Dec 16 2009 Reviewed: Sep 29 2011 Positive Family History for: Coronary artery disease Diabetes mellitus Hypertension Prostate cancer Additional comments: NOTHING NEW TO ADD TO HX Social History last modified Aug 04 2011 Reviewed: Sep 29 2011 Tobacco Never smoked; Comments Tobacco no use; Tobacco reviewed with patient 09/29/2011 Alcohol Use Non-drinker Caffeine Use Uses caffeine; Amount: heavy (equiv to 4-9 8oz coffee/day) Diet/Nutrition Poor diet Drug Misuse No reported history Exercise Sedentary Home Safety Risk Seat belt worn consistently; Smoke detectors in home Personal: Race: WHITE; Primary language: null; Marital status: Review of systems Constitutional: No [...] lower extremity edema, No pleuritic chest pain, Dyspnea, No cough, No wheezing, No Purulent sputum [...] No Anaphylaxis Objective Vital Signs Pain Scale: 3/10 (Numeric) Location: CHEST Frequency: Intermittent Duration: 3-4 MONTHS Relieving Factors: NONE Significant to Visit: Yes Date/Time: Sep 29 2011 09:32 Temp: *97.2 ??F (Oral) [36.3??C] HR: 72 bpm RR: 18 Blood Pressure: *140/72 mmHg (R arm sitting Adult-std cuff) Height: 69 in [175.26 cm] Weight:277 lbs [125.645 kg ] BMI: 40.9 BSA: 2.372 Date/Time: Sep 29 2011 09:26 Physical Exam Constitutional: alert, appropriate, no distress, non-toxic Neck: supple, no mass, no thyromegaly, trachea midline, no JVD, no bruit, full ROM Eyes/ENT: lids/conj clr, PERRL, EOMIB, discs/fundi symm, TM's/canals clr, hearing OK, MM moist/clr Cardio and Respiratory: RRR, no m/r/g/, PMI nml, pulses symm, no edema, chest symm, clear to auscultation, no R/R/W NL S1 S2 EKG OK CXRAY XRAY GI/: soft, NT/ND, positive BS X 4, no mass Musculoskeletal/Skin/Lymphatics: back symm/NT, extremities symm, FROM, well hydrated, nml perfusion, no lesions, cervical, supraclavicular, axillary, inguinal nodes sym/nml DOUG HEEL PAIN Neurologic and Psychiatric: CN II-XII intact, DTR 2/4 symm, MS 5/5 symm, sensory exam symm, gait/coordination intact, memory intact, A&O X 3, mood/affect wnl, judgement/insight appropriate Assessment Assessments Advice/health instruction (ICD-9 billing code: V65.40) Chest pain (ICD-9 billing code: 786.50) Elevated fasting glucose (ICD-9 billing code: 790.21) Gout (ICD-9 billing code: 274.9) Hyperlipidemia (ICD-9 billing code: 272.4) Hypertension, essential (ICD-9 billing code: 401.9) Pain, heel (ICD-9 billing code: 729.5) Shortness of breath (dyspnea) (ICD-9 billing code: 786.05) Billing Detail Review and/or order of lab tests; Review and/or order of test in the radiology section of CPT; Review and/or order of test in the medicine section of CPT Plan Lab Orders CBC with Differential (Manifested - Hypertension, essential) Comprehensive Metabolic Panel (CMP) (Manifested - Hyperlipidemia) Hemoglobin A1C (Manifested - Elevated fasting glucose) Lipid Panel (Manifested - Hyperlipidemia) T4 Free (Thyroxine Free) (Manifested - Hypertension, essential) Thyroid Stimulating Hormone (TSH) (Manifested - Hypertension, essential) Uric Acid, Serum (Manifested - Gout) Procedure Orders zPt Ed - Colon Cancer Aware (Performed - Advice/health instruction) zPt Ed - Routine Screening (Performed - Advice/health instruction) *XR Chest 2 Views Routine (41389) (Performed - Shortness of breath (dyspnea)) *XR Foot Complete 3 Views Routine (38663) (Performed - Pain, heel), Laterality: Right CV Stress Test Nuc Med w/Treadmill (63690) (Ordered - Chest pain, Shortness of breath (dyspnea)), Reason: SPOKE TO BLANEKAREL NUMBER IS [id number], [facility]ax[facility] to [facility] [place] - [facility] [place] [phone] byH. LOZANO on Sep 29 2011 12:06: Other orders EXERCISES FOR PLANTAR FASCIITIS AND ACHILLES STRESS THALLIUM LABS TODAY IF NO IMPROV PFTS AND PT OT FOR FOOT Contributors to this Visit Note Documenting Clinician: Purvi ROMERO - Staff Type: ASST Time: Sep 29 2011 09:26 Action: Eamon ROMERO - Staff Type: ASST Time: Sep 29 2011 09:33 Action: Smita TEJADA - Staff Type: Registered Nurse Time: Sep 29 2011 10:03 Action: Smita PAGE - Staff Type: Registered Nurse Time: Sep 29 2011 10:38 Action: Smita ELIAS - Staff Type: Physician Time: Sep 29 2011 11:31 Action: Smita LOZANO - Staff Type: ASST Time: Sep 29 2011 12:06 Action: Smita ELIAS - Staff Type: Physician Time: Sep 29 2011 13:04 Action: Sign documented in this encounter Plan of Treatment Not on file documented as of this encounter Visit Diagnoses Diagnosis Other and unspecified hyperlipidemia Gout, unspecified Unspecified essential hypertension Pain in limb Chest pain, unspecified Impaired fasting glucose documented in this encounter Care Teams Print Project Manager Relationship Specialty Start Date End Date Jose Juan Elias MD PCP - General Family Medicine 04/06/14 05/05/24 Laila Alfonso MD Consulting Physician Dermatology 12/05/18 documented as of this encounter
--- OUTSIDE RECORDS SUMMARY | 2025-02-20 14:58 | XMS_ITS | Encounter Summary ---
Author Organization [employer] Address [address] [place] [address] Care Team Providers Care Technical Rep Name Role Phone Jose Juan Rocha MD Primary Care Provider Unavaila Laila Adkins MD Unavailable Unava ilable Encounter Details Date Type Department Care Team (Latest Contact Info) Description 02/24/2013 [facility] [place] [address] [place] [phone] Jose Juan Rocah MD Pain in thoracic spine; Obstructive sleep apnea (adult) (pediatric) Social History Tobacco Use Types Packs/Day Years Used Date Smoking Tobacco: Never Assessed Sex and Gender Information Value Date Recorded Sex Assigned at Not on file 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 Gender Identity Male 10/20/2020 3:58 PM CDT Sexual Orientation Straight 10/20/2020 3: 58 PM CDT documented as of this encounter Last Filed Vital Signs Vital Sign Reading Time Taken Comments Blood Pressure 112/60 02/24/2013 10:13 AM CDT Pulse 77 02/24/2013 10:13 AM CDT Temperature 35.9 C (96.6 F) 02/24/2013 10:13 AM CDT Respiratory Rate - - Oxygen Saturation - - Inhaled Oxygen Concentration - - Weight 121.6 kg (268 lb) 02/24/2013 10:13 AM CDT Height 175.3 cm (5' 9) 02/24/2013 10:13 AM CDT Body Mass Index 39.58 02/24/2013 10:13 AM CDT documented in this encounter Progress Notes * Jose Juan Rocha MD - 02/24/2013 10:13 AM CDT Nursing Chief Complaint/Reason For Encounter PT HAS HAD PAIN IN BETWEEN SHOULDERS AND IN RIBS. Quality Metrics Influenza vaccination up-to-date? No. BMI is greater than 25. Over the past 2 weeks, have you felt little interest or pleasure in doing things? No. Over the past 2 weeks, have you felt down, depressed, or hopeless? No. Subjective HPI UPPER BACK AND RIB PAIN FOR LAST WEEK GETS WORSE EVERY DAY NO INJURY NOTHING DIFF AT WORK WITH JOB NO NUMBNESS OR TINGLING NOT SOB NO OTHER ILLNESSES Allergies Reviewed: Feb 24 2013 NKA Past Med/Surg History Problems Advice/health [...] 28 2006 Med List last modified Feb 24 2013 Reviewed: Feb 24 2013 lisinopril 40 mg tablet, 1 tablet(s) by mouth daily, 30 tablet taking pravastatin 40 mg tablet, 1 tablet(s) by mouth at bedtime, 30 tablet taking discontinued discontinued (FINISHED PRESCRIBED DOSE) Uloric 80 mg tablet, 1 TABLET BY MOUTH DAILY, 30 taking Preferred Pharmacy [place], [place] [[place], [address] [place] [address]] Family History last modified Oct 07 2012 Reviewed: Feb 24 2013 Positive Family History for: Coronary artery disease Diabetes mellitus Hypertension Prostate cancer Social History last modified Aug 04 2011 Reviewed: Feb 24 2013 Tobacco Never smoked; Comments Tobacco no use; Tobacco reviewed with patient 10/07/2012 Alcohol Use Non-drinker Caffeine Use Uses caffeine; Amount: heavy (equiv to 4-9 8oz coffee/day) Diet/Nutrition Poor diet Drug Misuse No reported history Exercise Sedentary Home Safety Risk Seat belt worn consistently; Smoke detectors in home Personal: Ethnicity: Not ; Race: WHITE; Primary language: ROMANSH; Marital status: Review of systems Constitutional: No [...] nocturia, No Enuresis Musculoskeletal/Integumentary: No neck pain, Back pain, Arthralgia, Myalgia, No rash, No pruritus, [...] urticaria, No Anaphylaxis Objective Vital Signs Temp: *96.6 ??F (Oral) [35.9??C] HR: 77 bpm Blood Pressure: 112/60 mmHg (L arm sitting Adult-std cuff) Height: 69 in [175.26 cm] Weight:268 lbs [121.563 kg ] BMI: 39.6 BSA: 2.339 Pain Scale: 6/10 (Numeric) Location: BETWEEN SHOULDERS AND RIBS Frequency: Constant Duration: ONE WEEK Significant to Visit: Yes Date/Time: Feb 24 2013 10:13 Physical Exam Constitutional: alert, appropriate, no distress, non-toxic Neck: supple, no mass, no thyromegaly, trachea midline, no JVD, no bruit, full ROM Eyes/ENT: lids/conj clr, PERRL, EOMIB, discs/fundi symm, TM's/canals clr, hearing OK, MM moist/clr Cardio and Respiratory: RRR, no m/r/g/, PMI nml, pulses symm, no edema, chest symm, clear to auscultation, no R/R/W CLEAR GI/: soft, NT/ND, positive BS X 4, no mass Musculoskeletal/Skin/Lymphatics: back symm/NT, extremities symm, FROM, well hydrated, nml perfusion, no lesions, cervical, supraclavicular, axillary, inguinal nodes sym/nml TENDER UPPER BACK WITH SPASM Neurologic and Psychiatric: CN II-XII intact, DTR 2/4 symm, MS 5/5 symm, sensory exam symm, gait/coordination intact, memory intact, A&O X 3, mood/affect wnl, judgement/insight appropriate Assessment Assessments Hyperlipidemia, mixed (ICD-9 billing code: 272.2) Obstructive sleep apnea syndrome (ICD-9 billing code: 327.23) Thoracic spine pain (ICD-9 billing code: 724.1) Billing Detail Medication Management: New/current prescription meds Plan Prescription Orders Rx Cart - Feb 24 2013 10:34 cyclobenzaprine 10 mg tablet, 1/2 TO 1 TAB 3 TIMES DAILY NEEDED, 30 tablet(s), 1 refill Gaines 5 mg-325 mg tablet, 1-2 EVERY 8 PRN, 30 tablet(s), 1 refill pravastatin 40 mg tablet, 1 tablet(s) by mouth at bedtime, 30 tablet, 5 refills (Hyperlipidemia, mixed) Cart Status: Submitted Route: Print Rx Cart Order Notes: : Other orders TRIAL MEDS NO XRAY UNLESS WORSENS OK PRAVASTATIN AND CPAP SUPPLIES Contributors to this Visit Note Documenting Clinician: Purvi YOUNG - Type: CHIDI Time: Feb 24 2013 10:13 Action: Eamon YOUNG - Staff Type: CHIDI Time: Feb 24 2013 10:16 Action: Smita Bains Type: Time: Feb 24 2013 10:35 Action: Smita Bains Type: Time: Feb 24 2013 15:27 Action: Sign documented in this encounter Plan of Treatment Not on file documented as of this encounter Visit Diagnoses Diagnosis Pain in thoracic spine Obstructive sleep apnea (adult) (pediatric) documented in this encounter Care Teams Technical Rep Relationship Specialty Start Date End Date Jose Juan Rocha MD PCP - General Family Medicine 04/06/14 05/05/24 Laila Alfonso MD Consulting Physician Dermatology 12/05/18 documented as of this encounter
--- OUTSIDE RECORDS SUMMARY | 2025-02-20 14:58 | XMS_ITS | Encounter Summary ---
Author Organization [employer] [facility] Address [address] [place] [address] Care Team Providers Care Machine Or Machinery Mechanic Name Role Phone Jose Juan Rocha MD Primary Care Provider UnavailLaila Priest MD Unavailable Unava ilable Encounter Details Date Type Department Care Team (Late st Contact Info) Description 12/16/2009 Historical Office Visit [facility] [place] [address] [place] [phone] Mimi Rodrigez, MIGUEL [address] [place] [address] Pain in joint, lower leg Social History Tobacco Use Types Packs/Day Years Used Date Smoking Tobacco: Never Assessed Sex and Gender Information Value Date Recorded Sex Assigned at Not on file 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 Gender Identity Male 10/20/2020 3:58 PM CDT Sexual Orientation Straight 10/20/2020 3: 58 PM CDT documented as of this encounter Last Filed Vital Signs Vital Sign Reading Time Taken Comments Blood Pressure 118/72 12/16/2009 11:51 AM CDT Pulse 64 12/16/2009 11:51 AM CDT Temperature - - Respiratory Rate - - Oxygen Saturation - - Inhaled Oxygen Concentration - - Weight 122 kg (269 lb) 12/16/2009 11:49 AM CDT Height - - Body Mass Index 39.72 02/19/2009 10:23 AM CDT documented in this encounter Plan of Treatment Not on file documented as of this encounter Visit Diagnoses Diagnosis Pain in joint, lower leg documented in this encounter Care Teams Machine Or Machinery Mechanic Relationship Specialty Start Date End Date Jose Juan Rocha MD PCP - General Family Medicine 04/06/14 05/05/24 Laila Alfonso MD Consulting Physician Dermatology 12/05/18 documented as of this encounter
--- OUTSIDE RECORDS SUMMARY | 2025-02-20 14:58 | XMS_ITS | Encounter Summary ---
Author Organization [employer] Address [address] [place] [address] Care Team Providers Care Fleet Technician Name Role Phone Jose Juan Rocha MD Primary Care Provider Laila Palumbo MD Unavailable Unava ilable Encounter Details Date Type Department Care Team (Latest Contact Info) Description 08/04/2011 Historical Office Visit [facility] Family Medicine [place] [address] [place] [phone] Elizabeth Garcia MD Gout, unspecified Social History Tobacco Use Types Packs/Day Years Used Date Smoking Tobacco: Never Assessed Sex and Gender Information Value Date Recorded Sex Assigned at Not on file 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 Gender Identity Male 10/20/2020 3:58 PM CDT Sexual Orientation Straight 10/20/2020 3: 58 PM CDT documented as of this encounter Last Filed Vital Signs Vital Sign Reading Time Taken Comments Blood Pressure 128/76 08/04/2011 12:05 PM ENTRY ENGINEER Pulse 88 08/04/2011 12:05 PM ENTRY ENGINEER Temperature 36.2 C (97.2 F) 08/04/2011 12:05 PM ENTRY ENGINEER Respiratory Rate 16 08/04/2011 12:05 PM ENTRY ENGINEER Oxygen Saturation - - Inhaled Oxygen Concentration - - Weight 125.6 kg (277 lb) 08/04/2011 12:05 PM ENTRY ENGINEER Height 175.3 cm (5' 9) 08/04/2011 12:05 PM ENTRY ENGINEER Body Mass Index 40.91 08/04/2011 12:05 PM ENTRY ENGINEER documented in this encounter Progress Notes * Elizabeth Garcia MD - 08/04/2011 12:05 PM CST Nursing Chief Complaint/Reason For Encounter FOOT PAIN Intake Note PT. HERE TODAY WITH C/O RIGHT FOOT PAIN. HER DESCIBES THE PAIN AND CONSTANT AND SHARP, STARTED ON SUNDAY: Medication list given and reviewed with patient/family and voices understanding. Subjective HPI 45 yo man here for SDA: c/o R foot pain in R 1st MTP joint. +red, hot and swollen. Present for last 3 days. Getting worse. ROS: No f/c. No recent illness, URI sx. PMHx: treated for gout 10/10. Allergies NKA Past Med/Surg History Problems Advice/health instruction (8); First Visit: Aug 05 2007, Last Visit: Oct 19 2010 Elevated blood pressure w/o hypertension (1); [...] Last Performed: 06/16/2010 Med List last modified Aug 04 2011 Reviewed: Aug 04 2011 lisinopril-hydrochlorothiazide Oral, 1 tablet(s) by mouth daily, 30 tablet(s) taking discontinued (NO REFILLS FOR SEVERAL MONTHS) discontinued Preferred Pharmacy [place], [place] [[place], [address] [place] [address]] Family History last modified Dec 16 2009 Reviewed: Aug 04 2011 Positive Family History for: Coronary artery [...] Ethnicity: Not ; Race: WHITE; Primary language: OCCITAN Objective Vital Signs Pain Scale: 4/10 (Numeric) Location: RIGHT FOOT Frequency: Constant Duration: 1 WEEK Relieving Factors: NONE Significant to Visit: Yes Date/Time: Aug 04 2011 12:07 Temp: *97.2 ??F (Oral) [36.3??C] HR: 88 bpm RR: 16 Blood Pressure: 128/76 mmHg (R arm sitting Adult-std cuff) Height: 69 in [175.26 cm] Weight:277 lbs [125.645 kg ] BMI: 40.9 BSA: 2.372 Date/Time: Aug 04 2011 12:05 Constitutional: Alert, appropriate, no acute distress., Appears well Musculoskeletal (R,L) R 1st MTP joint - erythema, warmth and edema. +TTP only in MTP joint. Limited ROM 2/2 pain Lab Results 10/19/2010 Comprehensive Metabolic Panel SODIUM 140 POTASSIUM 4.4 CHLORIDE 105 CARBON DIOXIDE 24 BUN (BLOOD UREA NITROGEN) 16 GLUCOSE 71 Total Protein, Serum 7.6 Albumin 4.2 CALCIUM 9.7 CREATININE 0.91 Star Total Bili 0.4 Alkaline Phosphatase 65 AST 15 ALT 44 ANION GAP 11 OSMO-CALCULATED 279 URIC ACID Uric Acid 6.1 Assessment Assessments Advice/health instruction (ICD-9 billing code: V65.40) Gout (ICD-9 billing code: 274.9) Billing Detail Medication Management: New/current prescription meds Review and/or order of lab tests; Review and/or order of test in the medicine section of CPT gout - prednisone for acute exac. Uloric for chronic control. Given enough refills to last until wellness appt in September. Hx of kidney stones. RTC September for wellness visit with PCP. Plan Prescription Orders Rx Cart - Aug 04 2011 12:22 prednisone 10 mg Tab, 4 tablet(s) by mouth daily for 3 days, then 3 daily for 3 days, then 2 daily for 3 days, then 1 daily for 3 days, 30 tablet(s), No refills (Gout) Uloric 80 mg Tab, one tablet daily, 30 tablet(s), 3 refills (Gout) Cart Status: Submitted Route: Electronic Rx Cart Order Notes[id number] phone: [phone]: Message for Pharmacy: - Procedure Orders zPt Ed - 5 to 8 a day (Performed - Advice/health instruction) zPt Ed - Medication (Performed - Advice/health instruction) Contributors to this Visit Note Documenting Clinician: Zechariah ROMERO - Staff Type: ASST Time: Aug 04 2011 12:05 Action: Eamon ROMERO - Staff Type: ASST Time: Aug 04 2011 12:10 Action: Smita GARCIA - Staff Type: Physician Time: Aug 04 2011 12:29 Action: Smita GARCIA - Staff Type: Physician Time: Aug 04 2011 12:29 Action: Sign documented in this encounter Plan of Treatment Not on file documented as of this encounter Visit Diagnoses Diagnosis Gout, unspecified documented in this encounter Care Teams Fleet Technician Relationship Specialty Start Date End Date Jose Juan Rocha MD PCP - General Family Medicine 04/06/14 05/05/24 Laila Alfonso MD Consulting Physician Dermatology 12/05/18 documented as of this encounter
== END 2025-02-20 14:56 | disposition home or self-care (01) ==
LOC: CHSED 14:56
PROVIDERS: Emergency Provider Emergency Medicine
DX: S81.811A Laceration without foreign body, right lower leg, initial encounter (principal); Z23 Encounter for immunization; W45.8XXA Other foreign body or object entering through skin, initial encounter
CPT/HCPCS: 12002; 90471; 90715; 99283; A9270